=== PATIENT | female | born 1980 | race Two or more races ===

== ENCOUNTER 2023-11-22 11:00 | Outpatient (REF) | payer SELFPAY ==
[2023-11-22 11:52] LABS: MANUAL DIFF FLAG NO
[2023-11-22 12:08] LABS: Basophils Absolute Auto 0.1 X10*3/uL (0.0-0.2); Basophils Percent Auto 0.6 % (0-2); Eosinophils Absolute Auto 0.2 X10*3/uL (0.0-0.4); Eosinophils Percent Auto 1.9 % (0-4); Hematocrit 36.3 % (37.0-47.0); Hemoglobin 11.6 g/dl (12.0-16.0); Imm Gran Abs Auto 0.03 X10*3/uL (0.00-0.03); Imm Gran Pct Auto 0.4 % (0.0-0.4); Lymphocytes Absolute Auto 2.1 X10*3/uL (1.2-4.9); Mean Corpuscular Hemoglobin 22.6 pg (27.0-33.0); Mean Corpuscular Volume 70.6 fL (80.0-98.0); Mean Platelet Volume 10.3 fL (9.4-12.3); Monocytes Absolute Auto 0.4 X10*3/uL (0.1-1.2); Monocytes Percent Auto 4.7 % (2-11); Neutrophils Absolute Auto 5.6 x10*3/uL (2.0-8.3); Neutrophils Percent Auto 67.4 % (45-73); Platelet Count 315 X10*3/uL (160-400); Red Blood Count 5.14 X10*6/uL (4.20-5.50); White Blood Count 8.3 X10*3/uL (4.8-10.8)
[2023-11-22 12:44] LABS: Alanine Aminotransferase 9 U/L (0-31); Albumin Level 4.1 g/dL (3.5-5.0); Alkaline Phosphatase 97 U/L (39-117); Anion Gap 13 (12-20); Aspartate Amino Transferase 13 U/L (5-31); Bilirubin Direct 0.2 mg/dL (0.0-0.5); Bilirubin Total 0.6 mg/dL (0.0-1.0); Blood Urea Nitrogen 10 mg/dL (9-16); Calcium 9.4 mg/dL (8.4-10.2); Carbon Dioxide 24 mmol/L (22-29); Chloride 106 mmol/L (96-108); Cholesterol 183 mg/dL (<200); Estimated Glomerular Filt Rate > 60; Glucose Random 87 mg/dL (60-115); HDL Cholesterol 43 mg/dL (>40); Iron 70 mcg/dL (30-160); LDL Cholesterol Calculated 124 mg/dL (<100); Percent Iron Saturation 26 % (15-50); Potassium 3.5 mmol/L (3.3-5.1); Sodium 139 mmol/L (135-145); Total Iron Binding Capacity 265 mcg/dL (228-428); Triglycerides 80 mg/dL (<150); Unsaturated Iron Binding 195 ug/dL
[2023-11-22 12:52] LABS: Ferritin 39 ng/mL (10-250); TSH reflex Free T4 1.14 uIU/mL (0.32-4.0)
[2023-11-23 04:03] LABS: ~HepC Num1 0.19 S/CO (0.00-0.79); ~Hepatitis C Antibody Nonreactive (Nonreactive)
[2023-11-25 18:03] LABS: HIV RNA PCR Qn Copies Not Detected Copies/mL; HIV RNA PCR Qn Log Copies Not Detected Log cps/mL
== END 2023-11-22 11:01 | disposition home or self-care (01) ==
LOC: HO.HHCL 11:00
PROVIDERS: Visit Provider Internal Medicine
DX: Z00.00 Encounter for general adult medical examination without abnormal findings (principal); Z13.6 Encounter for screening for cardiovascular disorders; D64.9 Anemia, unspecified
CPT/HCPCS: 36415; 80048; 80061; 80076; 82728; 83540; 84443; 85025; 86803; 87536; 87900

== ENCOUNTER 2023-12-29 08:34 | Outpatient (REF) | payer OTHER, SELFPAY ==
--- NOTE | ~2023-12-29 | US_ITS ---
EXAMINATION: US ABDOMEN LIMITED CLINICAL INFORMATION: Upper quadrant pain, rule out gallbladder problems. COMPARISON: None available. TECHNIQUE: Real-time imaging of the right upper quadrant abdominal viscera. Limited visualization due to bowel gas. FINDINGS: PANCREAS: Limited visualization of pancreatic tail and head. Imaged portion of pancreatic body is unremarkable. LIVER: Increased hepatic parenchymal heterogeneity and echogenicity could be associated with hepatocellular disease/hepatic steatosis and substantially limits visualization. The hepatic contour is normal. The liver is normal in size. Correlation with liver function tests and clinical exam recommended to determine further management. GALLBLADDER: No gallstones. No gallbladder wall thickening. COMMON BILE DUCT: Normal in caliber measuring 0.24 cm in diameter. RIGHT KIDNEY: No hydronephrosis. No renal calculi. Limited visualization. The kidney measures 11.5 cm in maximum dimension. FREE FLUID: None. US/US abdomen limited IMPRESSION: Increased hepatic parenchymal heterogeneity and echogenicity could be associated with hepatocellular disease/hepatic steatosis and substantially limits visualization. Correlation with liver function tests and clinical exam recommended to determine further management.
== END 2023-12-29 08:35 | disposition home or self-care (01) ==
LOC: HO.HMGCX 08:34
PROVIDERS: PCP Internal Medicine; Visit Provider Internal Medicine
DX: R10.11 Right upper quadrant pain (principal)
CPT/HCPCS: 76705

== ENCOUNTER 2024-04-17 15:43 | Outpatient (REF) | payer OTHER, SELFPAY ==
--- NOTE | ~2024-04-17 | MM_ITS ---
EXAMINATION: MM SCREENING DIGITAL BREAST TOMOSYNTHESIS, BILATERAL CLINICAL INFORMATION: Screening. Asymptomatic. COMPARISON: Mammography: Comparison is made with available priors TECHNIQUE: Digital breast mammography with tomosynthesis is performed in both the craniocaudal and mediolateral oblique views along with computer-aided detection (CAD). FINDINGS: There are scattered areas of fibroglandular density (ACR BI-RADS breast composition Category b). There are no significant masses, abnormal calcifications, or other abnormalities. MM/MM tomosynthesis screening BI IMPRESSION: No mammographic evidence of malignancy. ASSESSMENT: BI-RADS BI-RADS 1 - Negative RECOMMENDATION: Routine annual mammography screening. 1 year F/U This examination should not preclude the clinical evaluation of a suspicious palpable abnormality. This patient's information was entered into a reminder system with a target due date for their next mammogram. Electronically signed by: Joanna Bailey DO 04/27/2024 09:04 AM EDT
== END 2024-04-17 15:44 | disposition home or self-care (01) ==
LOC: HO.MAMMO 15:43
PROVIDERS: PCP Internal Medicine; Visit Provider Internal Medicine
DX: Z12.31 Encounter for screening mammogram for malignant neoplasm of breast (principal)
CPT/HCPCS: 77063; 77067

== ENCOUNTER → 2024-04-17 16:15 | Outpatient (BNV) | payer OTHER, SELFPAY | PROVIDERS: PCP Internal Medicine; Visit Provider Internal Medicine | DX: Z12.31 Encounter for screening mammogram for malignant neoplasm of breast (principal) | CPT/HCPCS: 77063; 77067 ==

== ENCOUNTER 2024-05-25 16:29 | Outpatient (REF) | payer OTHER, SELFPAY ==
[2024-05-26 08:58] LABS: Adenovirus PCR Not Detected (Not Detect.); Bordetella parapertussis PCR Not Detected (Not Detect.); Chlamydia pneumoniae PCR Not Detected (Not Detect.); Coronavirus 229E PCR Not Detected (Not Detect.); Coronavirus HKU1 PCR Not Detected (Not Detect.); Coronavirus NL63 PCR Not Detected (Not Detect.); Coronavirus OC43 PCR Not Detected (Not Detect.); Human metapneumovirus PCR Not Detected (Not Detect.); Influenza A PCR Not Detected (Not Detect.); Influenza B PCR Not Detected (Not Detect.); Mycoplasma pneumoniae PCR Not Detected (Not Detect.); Parainfluenza 1 PCR Not Detected (Not Detect.); Parainfluenza 2 PCR Not Detected (Not Detect.); Parainfluenza 3 PCR Not Detected (Not Detect.); Parainfluenza 4 PCR Not Detected (Not Detect.); RSV PCR Not Detected (Not Detect.); Rhino/Enterovirus PCR Not Detected (Not Detect.)
[2024-05-26 09:12] LABS: SARS-CoV-2 PCR Not Detected (Not Detect.)
[2024-05-28 12:57] LABS: Bordetella pertussis PCR Detected (Not Detect.)
== END 2024-05-25 16:30 | disposition home or self-care (01) ==
LOC: HO.LNP 16:29
PROVIDERS: Visit Provider Student in an Organized Health Care Education/Training Program
DX: R05.8 Other specified cough (principal)
CPT/HCPCS: 87633

== ENCOUNTER 2024-10-19 09:16 | Outpatient (REF) | payer OTHER, SELFPAY ==
--- OUTSIDE RECORDS SUMMARY | 2024-10-19 10:00 | XMS_ITS | Encounter Summary ---
Author Organization [employer] Address [address] [place] [address] Care Team Providers Care Wildfire Prevention Specialist Name Role Phone Ivy Blanton MD Primary Care Provide r Encounter Details Date Type Department Care Team ([facility] st Contact Info) Description 05/03/2024 Orders Only [facility] [address] [place] [address] Provider, MD Inez Social History Tobacco Use Types Packs/Day Years Used Date Smoking Tobacco: Never Passive Smoke Exposure: Never Smokeless Tobacco: Never Alcohol Use Standard Drinks/Week Comments Never 0 (1 standard drink = 0.6 oz pur e alcohol) Alcohol Answer Date Recorded Frequency of Alcohol Consumption Not on file 11/22/2023 Average Number of Drinks Not on file 024 Frequency of Binge Drinking Not on file 01/2024 Score 0 11/22/2023 Depression Answer Date Recorded Patient Health Questionnaire-9 Score 0 11/22/2023 Patient Health Questionnaire-9 Score 0 11/22/2023 Last PHQ-9: Questionnaire Data Not on file 0 11/22/2023 Housing Stability Answer Date Recorded What is your housing situation today? I have luther poole 11/15/[address] you li ve. Do you have problems with any of the following? None of the above 11/15/2023 Food Insecurity Answer Date Recorded Within the past 12 months, y ou worried that your food would run out before you got money to buy more: Never True 11/15/2023 Within the past 12 months,th e food you bought just didn't last and you didn't have enough money to get more: Never True Transportation Answer Date Recorded In the past 12 months, has l ack of transportation kept you from medical appts, meetings, work or from getting things needed for daily living? No 11/15/2023 Utilities Answer Date Recorded In the past 12 months, has t he electric, gas, oil or water company threatened to shut off services in your home? No 11/15/2023 Depression Answer Date Recorded Patient Health Questionnaire-2 Score 0 11/22/2023 Comments Unknown Sex and Gender Information Value Date Recorded Sex Assigned at Female 05/17/2022 10:25 AM EDT Legal Sex Female 10:25 AM EDT Gender Identity Female 05/17/2022 10:25 AM EDT Sexual Orientation Choose not to disclose 2021 10:25 AM EDT documented as of this encounter Plan of Treatment Not on file documented as of this encounter Procedures Procedure Name Priority Date/Time Associated Diagnosis Comments HM PAP/HPV Routine 02/03/2021 2:29 PM EDT documented in this encounter Results * HM PAP/HPV (02/03/2021 2:29 PM EDT) us Historical Provider HEALTH MAINTENANCE Final Result documented in this encounter Visit Diagnoses Not on filedocumented in this encounter Additional Health Concerns Assessment Noted Time PHQ-9 Depression Total Score: 0 11/22/19 10:14 AM EDT documented as of this encounter Care Teams Wildfire Prevention Specialist Relationship Specialty Start Date End Date Ivy Blanton MD [address] [place] [id number] PCP - General Internal Medicine 11/22/23 documented as of this encounter
--- OUTSIDE RECORDS SUMMARY | 2024-10-19 10:00 | XMS_ITS | Clinical Summary ---
Author Organization [facility] it Address [address] [place] [address] Care Team Providers Care Director Child Development Center Name Role Phone Ivy Blanton MD Primary Care Provide r Surgical History Surgery Date Site/Laterality Comments TONSILLECTOMY PROCEDURE: HISTORICAL TONSILLECTOMY TUBAL LIGATION PROCEDURE: HISTORICAL TUBAL LIGATION UPPER GASTROINTESTINAL ENDOSCOPY 2012 PROCEDURE: [place] UPPER GI ENDOSCOPY PERFORMED; COMMENT: [facility] COLONOSCOPY 02/01/2017 PROCEDURE: HISTORICAL COLONOSCOPY; COMMENT: Dr. Montes -apparently normal ESOPHAGOGASTRODUODENOSCOPY 02/01/2017 PROCEDURE: MI EGD TRANSORAL BIOPSY SINGLE/MULTIPLE; COMMENT: Dr. Montes -gastritis. Biopsy consistent with chronic active gastritis with H. pylori infection. OTHER SURGICAL HISTORY 08/22/2017 PROCEDURE: CONTRAST X-RAYS, GALLBLADDER; COMMENT: HIDA scan is normal OTHER SURGICAL HISTORY 2009 N/A PROCEDURE: CERVICAL LEEP CONE BIOPSY [facility]Y EX ESOPHAGOGASTRODUODENOSCOPY 11/04/2021 PROCEDURE: MI EGD TRANSORAL BIOPSY SINGLE/MULTIPLE; COMMENT: normal, biopsy pending Medical History Medical History Date Comments Anemia 06/29/2013 DX:Anemia Anxiety 06/29/2013 DX:Anxiety; COMM ENT: [facility] - has counseling q2w; sees psych who prescribes meds as well. Asthma 06/29/2013 DX:Asthma Chronic constipation 05/10/2017 DX:Chronic constipation Esophageal reflux 12/11/2013 DX:Esophageal reflux History of Helicobacter pylo ri infection 01/26/2018 DX:History of Helicobacter p ylori infection; COMMENT: EGD 2012 ([facility]) Sludge in gallbladder 08/11/2017 DX:Sludge in gallbladder Dysplasia of cervix, high grade JAIR 2 2008 DX:Dysplasia of cervix, high grade JAIR 2 Epigastric pain DX:Epigastric pa in Depressive disorder DX:Depressiv e disorder Family History Medical History Relation Name Comments No Known Problems Brother Colon cancer Maternal Grandmother in 80s, her sister had breast cancer Hypertension Mother No Known Problems Sister Asthma Son x3 Blindness Neg Hx Cataracts Neg Hx Glaucoma Neg Hx Macular degeneration Neg Hx Strabismus Neg Hx Relation Name Status Comments Brother Alive Father unknown Maternal Grandmother Mother Alive Sister Alive Son Social History Tobacco Use Types Packs/Day Years Used Date Smoking Tobacco: Former Smokeless Tobacco: Former Alcohol Use Standard Drinks/Week Comments No 0 (1 standard drink = 0.6 oz pur e alcohol) Comments Unknown Sex and Gender Information Value Date Recorded Sex Assigned at Not on file Legal Sex Female 5:45 AM EST Gender Identity Not on file Sexual Orientation Not on file Obstetrics History Last Filed Vital Signs Vital Sign Reading Time Taken Comments Blood Pressure 116/86 04/19/2024 8:36 AM EDT Pulse 73 04/19/2024 8:36 AM EDT Temperature - - Respiratory Rate - - Oxygen Saturation - - Inhaled Oxygen Concentration - - Weight 56.7 kg (125 lb) 04/19/2024 8:36 AM EDT Height 149.9 cm (4' 11 ) 04/19/2024 8:36 AM EDT Body Mass Index 25.25 04/19/2024 8:36 AM EDT Plan of Treatment Health Maintenance Due Date Last Done Comments Breast Cancer Screening 1980 Hepatitis B Vaccines (1 of 3 - 19+ 3-dose series) 1997 Pneumococcal Vaccine: Pediat rics (0 to 5 Years) and At-Risk Patients (6 to 64 Years) (1 of 2 - PCV) 1997 Colorectal Cancer Screening: Colonoscopy 06/20/2022 Depression Screening 06/20/2022 HIV Screening 06/20/2022 Hepatitis C Screening 06/20/2022 Social Influencers of Health Screening 06/20/2022 DTaP,Tdap,and Td Vaccines (2 - Td or Tdap) 09/28/2023 09/27/2013 COVID-19 Vaccine ( - 2023-2 5 season) 2024 Influenza Vaccine (#1) 2024 Cervical Cancer Screening: P ap Smear 04/19/2027 04/19/2024 HIB Vaccines Aged Out No longer eligi ble based on patient's age to complete this topic HPV Vaccines Aged Out No longer eligi ble based on patient's age to complete this topic Hepatitis A Vaccines Aged Out No long er eligible based on patient's age to complete this topic IPV Vaccines Aged Out No longer eligi ble based on patient's age to complete this topic MMR Vaccines Aged Out No longer eligi ble based on patient's age to complete this topic Meningococcal ACWY Vaccine Aged Out N o longer eligible based on patient's age to complete this topic Meningococcal B Vacine Aged Out No lo nger eligible based on patient's age to complete this topic RSV Immunization Patients Un michaela 20 months Aged Out No longer eligible b ased on patient's age to complete this topic Varicella Vaccines Aged Out No longer eligible based on patient's age to complete this topic Procedures Procedure Name Priority Date/Time Associated Diagnosis Comments PAP SMEAR Routine 04/19/2024 from Last 3 Months or Most Recently Relevant to Health Maintenance Results * Pap smear (04/19/2024) 04/19/2024 Narrative HISTORICAL TESTING LAB RESULTING AGENCY - 04/24/2024 1:15 PM EDT [id number] THINPREP PAP, IMAGED: NEGATIVE FOR SQUAMOUS INTRAEPITHELIAL LESION AND MALIGNANCY ION PARIKH(ASCP) (CASE ELECTRONICALLY SIGNED 04 24 2024) RESULT OF APTIMA HIGH RISK HPV ASSAY: HIGH RISK HPV: ??NEGATIVE (SEROTYPES 16,18,31,33,35,39,45,51,52,56,58,59,66,68) COMPLETED ON 2024-04-20 ADEQUACY: SATISFACTORY ENDOCERVICAL/TRANSFORMATION ZONE COMPONENT PRESENT. SOURCE: THINPREP PAP HPV ANY DX: ??REFLEX 16 AND 18, CERVICAL, IMAGED CLINICAL INFORMATION: HPV ANY DIAGNOSIS. HORMONES, PAP HX NEGATIVE AT [facility] 2020, [[id number] ENCOUNTER FOR GYNECOLOGICAL EXAMINATION (GENERAL) (ROUTINE) WITHOUT ABNORMAL FINDINGS] us Phylicia Moore CN LAB CYTOLOGY ORDERABLES Final Result HISTORICAL TESTING LAB RESULTING AGENCY from Last 3 Months or Most Recently Relevant to Health Maintenance Care Teams Director Child Development Center Relationship Specialty Start Date End Date Ivy Blanton MD [address] [place] [phone] PCP - General 01/13/24
--- OUTSIDE RECORDS SUMMARY | 2024-10-19 10:00 | XMS_ITS | Clinical Summary ---
Author Organization [employer] Address [address] [place] [address] [address] [place] [address] Care Team Providers Care Orthopedic Podiatrist Name Role Phone Ivy Blanton MD Primary Care Provide r Allergies No known active allergies Medications * This document contains information received from the source organization and may not represent a complete record from that organization. FLUoxetine (PROzac) 20 MG capsule TOME 1 C PSULA POR V A ORAL TODOS LOS D EN LA MA MURALI 024 Active cholecalciferol VITAMIN D (Vitamin D-3) 50 MCG (2000 UT) capsule TOME 1 C PSULA POR V A ORAL TODOS LOS D Active albuterol 108 (90 Base) MCG/ACT inhalerIndicati ons:Mild intermittent asthma, unspecified whether complicated Inhale 2 puffs every 6 (six) hours if needed for wheezing. 18 g 2 025 2025 Active albuterol (2.5 MG/3ML) 0.083% nebulizer solutionIndicat ions:Mild intermittent asthma, unspecified whether complicated Take 3 mL (2.5 mg) by nebulization every 4 (four) hours if needed for wheezing. 75 mL 3 025 2025 Active fluticasone furoate (Arnuity Ellipta) 100 MCG/ACT inhalerIndicati ons:Mild intermittent asthma, unspecified whether complicated Inhale 1 puff Once per day. Rinse mouth with water after use to reduce aftertaste and incidence of candidiasis. Do not swallow. 1 each 025 2025 Active LORazepam (Ativan) 0.5 MG tabletIndicatio ns:Anxiety Use if needed for traveling 4 tablet 025 Active albuterol 108 (90 Base) MCG/ACT inhalerIndicati ons:Mild intermittent asthma, unspecified whether complicated Inhale 2 puffs every 6 (six) hours if needed for wheezing. 18 g 2 024 2024 Discontinued(R eorder (will not trigger notification to Pharmacy)) albuterol (2.5 MG/3ML) 0.083% nebulizer solutionIndicat ions:Mild intermittent asthma, unspecified whether complicated Take 3 mL (2.5 mg) by nebulization every 4 (four) hours if needed for wheezing. 75 mL 3 024 2024 Discontinued(R eorder (will not trigger notification to Pharmacy)) LORazepam (Ativan) 0.5 MG tabletIndicatio ns:Anxiety Use if needed for traveling 4 tablet 024 2024 Discontinued(R eorder (will not trigger notification to Pharmacy)) Active Problems Problem Noted Date Diagnosed Date Chronic fatigue 10/04/2024 Assessment & Plan (10/04/2024 2:55 PM EDT): Labs ordered today patient will be contacted with results Cough in adult 05/27/2024 Assessment & Plan (05/27/2024 8:25 AM EST): Pt with dry cough for more than a week , had recently CXR at hospital reported as neg and neg COVID 19 infections Given increase in cases of pertussis and mycoplasma and features of cough this is in the differential Normal VS and ENT and lung exam Pt already completed empiric azithromycin x 5 days px in ED which will tx for mycoplasma and pertussis -Resp viral panel obtained today in office -will inform pt w results -explained pt that if + for mycoplasma and pertussis cough can linger for several weeks -already completed 5 days w azithromycin -dextromethorphan px today -alarm signs and symptoms -BRYNN prn use-has at home -mask use advised and hand hygiene Colon cancer screening 04/05/2024 Encounter for screening mamm ogram for malignant neoplasm of breast 04/05/2024 RUQ pain 12/22/2023 Assessment & Plan (12/22/2023 12:21 PM EDT): GI referral will be printed and mail to patient US ordered patient will be contacted with results Helicobacter pylori gastritis 11/22/2023 Other constipation 11/22/2023 Anemia 11/22/2023 Muscle spasm 11/22/2023 Assessment & Plan (11/22/2023 1:18 PM EDT): Apply heat on affected area Gentle stretching Flexeril (I advise not drive while taking this medication) Acetaminophen PRN Health care maintenance 11/22/2023 Overweight (BMI 25.0-29.9) 11/22/2023 Fear of flying 11/22/2023 Assessment & Plan (11/22/2023 1:19 PM EDT): Lorazepam supply only 4 tablet take one 1-2 hours before her flight Anxiety 06/25/2013 Assessment & Plan (10/04/2024 2:53 PM EDT): Continue to follow with therapist and psychiatrist Assessment & Plan (04/05/2024 11:15 AM EDT): Stable continue with same interventions Assessment & Plan (12/22/2023 12:21 PM EDT): Continue to follow with specialist Arthritis 06/25/2013 Asthma 06/25/2013 Assessment & Plan (10/04/2024 2:53 PM EDT): Patient educated to avoid triggers I will star her on ellipta daily C/w albuterol PRN Assessment & Plan (11/22/2023 1:17 PM EDT): Patient educated to avoid asthma triggers Albuterol refilled today Encounters Date Type Department Care Team Description 10/04/2024 11:00 AM EDT Office Visit [facility] [address] [place] [phone] Ivy Blanton MD Colon cancer screening (Primary Dx); Mild intermittent asthma, unspecified whether complicated; Chronic fatigue; Anxiety 10/04/2024 Travel 09/26/2024 Patient Outreach [facility] [address] [place] [address] Ivy Blanton MD Pre-visit Planning (SDOH screening negative and tobacco screening negative) from Last 3 Months Immunizations Name Administration Dates Next Due Influenza, IIV3, injectable 06/05/2008, 6 Pneumococcal Polysaccharide PPSV23 06/01/2006 Social History Tobacco Use Types Packs/Day Years Used Date Smoking Tobacco: Never Passive Smoke Exposure: Never Smokeless Tobacco: Never Tobacco Cessation:Counseling Given: Not Answered Alcohol Use Standard Drinks/Week Comments Never 0 [...] your housing situation today? I have luther virgilio 11/15/[address] you li [...] Recorded Patient Health Questionnaire-2 Score 0 11/22/2023 Internet Access Answer Date Recorded Internet Access Q1 Yes 09/26/2024 Internet Access Q2 Not on file 09/26/2024 Comments Unknown Sex and Gender Information Value Date Recorded Sex Assigned at Female 05/17/2022 10:25 AM EDT Legal Sex Female 10:25 AM EDT Gender Identity Female 05/17/2022 10:25 AM EDT Sexual Orientation Choose not to disclose 2021 10:25 AM EDT Last Filed Vital Signs Vital Sign Reading Time Taken Comments Blood Pressure 127/80 10/04/2024 11:02 AM EDT Pulse 77 10/04/2024 11:02 AM EDT Temperature 35.6 ??C (96.1 ??F) 10/04/2024 11:02 AM E DT Respiratory Rate 20 10/04/2024 11:02 AM EDT Oxygen Saturation 99% 05/25/2024 1:02 PM EST Inhaled Oxygen Concentration - - Weight 58.7 kg (129 lb 6.4 oz) 10/04/2024 11:02 AM EDT Height 149.9 cm (4' 11 ) 10/04/2024 11:02 AM EDT Body Mass Index 26.14 10/04/2024 11:02 AM EDT Plan of Treatment Health Maintenance Due Date Last Done Comments CT Colonography 1978 Colonoscopy 1978 Colorectal Cancer Screening 1978 FIT DNA/Cologuard 1978 FIT 1978 FOBT 1978 HIV Screening 1978 Sigmoidoscopy 1978 Family Planning (PISQ) 1993 DTaP/Tdap/Td Vaccines (1 - Tdap) 1997 Hepatitis B Vaccines (1 of 3 - 19+ 3-dose series) 1997 Pneumococcal Vaccine: Pediatrics (0 to 5 Years) and At-Risk Patients (6 to 49) Years) (2 of 2 - PCV) 06/01/2007 06/01/2006 Dental Prophylaxis 06/22/2015 12/20/2014 Dental Oral Exam 03/11/2020 09/10/2019, 02/23/2017, 10/04/2014 Dental X-Ray: Bitewings 09/11/2020 09/10/19 20, 02/23/2017, 10/04/2014 Dental X-Ray: Full Mouth 09/11/2022 020, 10/04/2014 COVID-19 Vaccine (3 - 2023-2 5 season) 2024 01/07/2021, 12/17/2020 Influenza Vaccine (#1) 2024 8, 06/01/2006 Alcohol/Substance Use Screening 11/21/2024 11/22/2023 Depression Screening 11/21/2024 11/22/2023, 11/22/2023 SDOH Screening 09/26/2025 09/26/2024 Tobacco Screening 10/04/2025 10/04/2024 Cervical Cancer Screening 02/03/2026 HPV/Cotest 02/03/2026 Pap Smear 02/03/2026 02/03/2021 Mammogram 04/17/2026 04/17/2024 Zoster Vaccines (1 of 2) 2028 RSV Patients and Patients Aged 60 years or older (1 - 1-dose 75+ series) 2053 Hepatitis C Screening Completed 11/22/2023 HIB Vaccines Aged Out No longer eligi [...] patient's age to complete this topic Meningococcal Vaccine Aged Out No michel juan j eligible based on patient's age to complete this topic RSV under 20 months Aged Out No longe r eligible based on patient's age to complete this topic Rotavirus Vaccines Aged Out No longer eligible based on patient's age to complete this topic Procedures Procedure Name Priority Date/Time Associated Diagnosis Comments BI MAMMOGRAM SCREENING TOMOSYNTHESIS BILATERAL Routine 04/17/2024 3:50 PM EDT Encounter for screening mammogram for malignant neoplasm of breast HEPATITIS C AB W/REFL TO HCV RNA, QN, PCR Routine 11/22/2023 11:03 AM EDT Health care maintenance HM PAP/HPV Routine 02/03/2021 2:29 PM EDT INTRAORAL - COMPLETE SERIES OF RADIOGRAPHIC IMAGES Routine 09/10/2019 12:00 AM EST PERIODIC ORAL EVALUATION - ESTABLISHED PATIENT Routine 09/10/2019 12:00 AM EST PROPHYLAXIS - ADULT Routine 12/20/2014 1 2:00 AM EDT from Last 3 Months or Most Recently Relevant to Health Maintenance Results * BI Mammogram Screening Tomosynthesis Bilateral (04/17/2024 3:50 PM EDT) Anatomical Region Laterality Modality Breast Bilateral Mammography 04/17/2024 3:50 PM EDT Narrative 04/27/2024 9:07 AM EDT ? [facility] ? [address] ?[place], [place] [address] ? Mammography Report ? Signed ? Patient: Abimbola James ?MR#: [id number] ?? 4 ? : 1980 ?Acct:[id number] ? Age/Sex: 43 / F ?ADM Date: 04/17/24 ? Loc: HO.MAMMO ? Attending Dr: Ivy Willett MD ? Ordering Physician: Ivy Blanton MD ?Results: ?? 1Negative ? Date of Service: 04/17/24 ?Follow Up: 1 Year From Orig ?? inal Mammogram ? Procedure(s): MM tomosynthesis screening BI ?? Accession Number(s): [id number] ? cc: Ivy Blanton MD ? EXAMINATION: ?? MM SCREENING DIGITAL BREAST TOMOSYNTHESIS, BILATERAL ? CLINICAL INFORMATION: ? Screening. Asymptomatic. ? COMPARISON: ?? Mammography: Comparison is made with available priors ? TECHNIQUE: ?? Digital breast mammography with tomosynthesis is performed in both the ?? craniocaudal and mediolateral oblique views along with computer-aided ?? detection (CAD). ? FINDINGS: ?? There are scattered areas of fibroglandular density (ACR BI-RADS breast ?? composition Category b). ? There are no significant masses, abnormal calcifications, or other ?? abnormalities. ? MM/MM tomosynthesis screening BI ?? IMPRESSION: ?? No mammographic evidence of malignancy. ? ASSESSMENT: ? BI-RADS BI-RADS 1 - Negative ? RECOMMENDATION: ?? Routine annual mammography screening. ? 1 year F/U ? This examination should not preclude the clinical evaluation of a ?? suspicious palpable abnormality. ? This patient's information was entered into a reminder system with a ?? target due date for their next mammogram. ? Electronically signed by: ??Joanna Bailey DO ??04/27/2024 09:04 AM EDT ? Dictated By: ?Joanna Bailey DO ? Signed By: ?<Electronically signed by Joanna Bailey, DO in OV> ? 04/27/24 0904 ? DD/ 1550 ? TD/TT: 04/17/24 1611 ? Internal Controls Consultant: ? Procedure Note [facility], Image - 04/27/2024 [facility] [address] [place] [address] Mammography Report Signed Patient: Abimbola JamesMR#: [id number] 4 : 1980Acct:[id number] Age/Sex: 43 / FADM Date: 04/17/24 Loc: [facility] Attending Dr: Ivy Willett MD Ordering Physician: Ivy Blanton MDResults: 1Negative Date of Service: 04/17/24Follow Up: 1 Year From Orig inal Mammogram Procedure(s): MM tomosynthesis screening BI Accession Number(s): [id number] cc: Ivy Blanton MD EXAMINATION: MM SCREENING DIGITAL BREAST TOMOSYNTHESIS, BILATERAL CLINICAL INFORMATION: Screening. Asymptomatic. COMPARISON: Mammography: Comparison is made with available priors TECHNIQUE: Digital breast mammography with tomosynthesis is performed in both the craniocaudal and mediolateral oblique views along with computer-aided detection (CAD). FINDINGS: There are scattered areas of fibroglandular density (ACR BI-RADS breast composition Category b). There are no significant masses, abnormal calcifications, or other abnormalities. MM/MM tomosynthesis screening BI IMPRESSION: No mammographic evidence of malignancy. ASSESSMENT: BI-RADS BI-RADS 1 - Negative RECOMMENDATION: Routine annual mammography screening. 1 year F/U This examination should not preclude the clinical evaluation of a suspicious palpable abnormality. This patient's information was entered into a reminder system with a target due date for their next mammogram. Electronically signed by: Joanna Bailey DO 04/27/2024 09:04 AM EDT RP Dictated By: Joanna Bailey DO Signed By: <Electronically signed by Joanna Bailey DO in OV> 04/27/24 0904 DD/ 1550 TD/TT: 04/17/24 1611 Internal Controls Consultant: us Ivy Willett MD IMG BI PROCEDURES Raj antonio Result - Final * Hepatitis C Antibody with Reflex to HCV, RNA, Quantitative, Real-Time PCR (11/22/2023 11:03 AM EDT) Hepatitis C Antibody Nonreactive Nonreactive [facility] Comment:Antibodies to HCV no t detected; does not exclude early acuteHCV infection. Blood Venous blood specimen / Unknown 11/22/2023 11:03 AM EDT 11/22/2023 11:50 AM EDT us Ivy Willett MD LAB BLOOD ORDERABLES Final Result [facility] [address] [place] [address] [phone] * HM PAP/HPV (02/03/2021 2:29 PM EDT) us Historical Provider HEALTH MAINTENANCE Final Result from Last 3 Months or Most Recently Relevant to Health Maintenance Insurance [facility] Care Teams Orthopedic Podiatrist Relationship Specialty Start Date End Date Ivy Blanton MD [address] [place] [phone] PCP - General Internal Medicine 11/22/23
--- OUTSIDE RECORDS SUMMARY | 2024-10-19 10:00 | XMS_ITS | Clinical Summary ---
Author Organization [facility] Address [address] [place] [address] Care Team Providers Care Marketing Support Manager Name Role Phone Unavailable Primary Care Provider Unavailabl e Source Comments PLEASE NOTE, if this patient is a minor, it may be UNLAWFUL to discuss sensitive information that is contained in these records (such as FAMILY PLANNING, MENTAL HEALTH or SUBSTANCE ABUSE) with the minor patient's parent or other person without the patient's specific authorization.[facility] Allergies No known active allergies Medications clonazePAM (KLONOPIN) 0.5 mg tablet 5 5 Active zolpidem (AMBIEN) 5 mg tablet Take 5 mg by mouth nightly at bedtime. 5 5 Active ibuprofen (ADVIL,MOTRIN) 400 mg tablet 6 Active montelukast (SINGULAIR) 10 mg tabletIndication s:Mild intermittent asthma without complication ([facility]) Take 1 Tab by mouth nightly at bedtime. 30 Tab 3 6 Active polyethylene glycol (GLYCOLAX, MIRALAX) 17 gram/dose powderIndication s:Chronic constipation Take 17 g by mouth once daily. Dissolve in a glass (8 oz) of water. 289 g 2 6 Active naproxen (NAPROSYN) 500 mg tabletIndication s:Acute right-sided low back pain with right-sided sciatica Take 1 Tab by mouth 2 (two) times daily with a meal. 60 Tab 2 6 Active cyclobenzaprine (FLEXERIL) 10 mg tabletIndication s:Acute right-sided low back pain with right-sided sciatica Take 1 Tab by mouth 2 (two) times daily as needed for muscle spasms. 40 Tab 0 10/07/201 6 Active naproxen (NAPROSYN) 500 mg tabletIndication s:Acute right-sided low back pain with sciatica, sciatica laterality unspecified Take 1 Tab by mouth 2 (two) times daily with a meal 60 Tab 0 7 Active cyclobenzaprine (FLEXERIL) 5 mg tabletIndication s:Acute right-sided low back pain with sciatica, sciatica laterality unspecified Take 1 Tab by mouth 2 (two) times daily as needed for muscle spasms 30 Tab 0 7 Active methylPREDNIsolo ne (MEDROL DOSPACK) 4 mg tablet packIndications: Acute right-sided low back pain with sciatica, sciatica laterality unspecified Follow package directions. 1 Packet 0 7 Active capsaicin (ZOSTRIX) 0.075 % creamIndications :Acute right-sided low back pain with sciatica, sciatica laterality unspecified Apply topically 3 (three) times daily 60 g 0 7 Active rifabutin (MYCOBUTIN) 150 mg capsule 7 Active ferrous sulfate 325 mg (65 mg iron) tablet Take 1 Tab by mouth once daily with breakfast 30 Tab 5 8 Active DAILY-ALHAJI tabletIndication s:Dysuria,Chroni c right-sided low back pain with right-sided sciatica TAKE 1 TABLET BY MOUTH EVERY DAY 30 Tab 1 8 Active albuterol sulfate 90 mcg/actuation inhalerIndicatio ns:Mild intermittent asthma without complication ([facility]) INHALE 2 PUFFS INTO THE LUNGS EVERY 6 HOURS NEEDED FOR SHORTNESS OF BREATH OR WHEEZING 8.5 Inhaler 9 Active VITAMIN D3 2,000 unit capsule 9 Active FLUoxetine (PROZAC) 40 mg capsule 9 Active ferrous sulfate 325 mg (65 mg iron) EC tablet Take 1 Tab by mouth once daily with breakfast Swallow whole. Do not crush or chew. 30 Tab 5 9 Active docusate sodium (COLACE) 100 mg capsule Take 1 Cap by mouth 3 (three) times daily as needed for constipation 60 Cap 2 9 Active nebulizer accessoriesIndic ations:Mild intermittent asthma without complication ([facility]) Use as directed 1 Device 9 Active nebulizer and compressorIndica tions:Mild intermittent asthma without complication ([facility]) Use as directed 1 Each 9 Active diphenhydramine- zinc acetate (BENADRYL) 1-0.1 % creamIndications :Urticaria Apply topically 3 (three) times daily as needed for itching 28.3 g 2 9 Active hydrOXYzine HCl (ATARAX) 50 mg tabletIndication s:Urticaria Take 1 Tab by mouth 3 (three) times daily as needed for anxiety or itching 30 Tab 3 9 Active omeprazole (PRILOSEC) [address] capsuleIndicatio ns:Helicobacter pylori gastritis TAKE 1 CAPSULE BY MOUTH 2 (TWO) TIMES DAILY DO NOT CRUSH OR CHEW. 60 Cap 1 9 Active Active Problems Problem Noted Date Diagnosed Date Gallbladder sludge 06/22/2017 Overview (06/22/2017): US Liver 06/17/17 echogenic layering sludge in gallbladder w/o evidence of acute cholecystitis. Sacroiliac dysfunction 02/14/2017 Overview (02/14/2017): Sees PM at on 12/20/16: going to receive injections. Vitamin D deficiency 05/21/2015 Depression with anxiety 05/13/2015 Overview (05/13/2015): She is following with at [address] On celexa, Klonopin, Ambien Insomnia 05/13/2015 Anemia 05/13/2015 Overview (06/04/2015): Since childhood. On Iron supplements. H/H normal but has low MCV in 04/2015 Gastritis 05/13/2015 Overview (02/08/2017): EGD colonoscopy done 02/01/17: erythema in the stomach probably from non erosive gastritis H/o H pylori s/p Rx. [place] ( [place] Constipation 05/13/2015 Mild intermittent asthma without complication ([facility]) 05/13/2015 Overview (05/13/2015): Symptoms depend on weather changes. Only on Albuterol. Had PFTs in [place] ~2013. Dizziness 05/13/2015 Overview (05/13/2015): Says that she was treated for vertigo in the past H/O abnormal cervical Papanicolaou smear 015 Overview (05/13/2015): ~2009 as per pt. S/p ? Colposcopy / Bx. Had normal PAP subsequently- last PAP 07/2014. Following with Global Sourcing Manager [place] [facility] [facility] Leukocytosis 05/13/2015 Overview (05/13/2015): Wbc=11.5(05/13/15) ? cause Immunizations Immunization Administration Dates Next Due TDAP 01/02/2019(Deferred: Patient Ref used) Family History Medical History Relation Name Comments Heart Problems Maternal Aunt Hypertension Maternal Aunt Cancer Maternal Grandmother Heart Problems Mother Hypertension Mother Thyroid Disease Mother Relation Name Status Comments Maternal Aunt Maternal Grandmother Mother Social History Tobacco Use Types Packs/Day Years Used Date Smoking Tobacco: Former Smokeless Tobacco: Never Alcohol Use Standard Drinks/Week Comments No 0 (1 standard drink = 0.6 oz pur e alcohol) Social Connections Answer Date Recorded Connectedness 0 03/24/2024 Financial Resource Strain Answer Date R ecorded Financial Resource Strain 0 2018 Stress Answer Date Recorded Stress 0 03/10/2019 Physical Activity Answer Date Recorded Physical Activity 0 03/10/2019 Food Insecurity Answer Date Recorded Food 0 04/12/2024 Transportation Needs Answer Date Record ed Transportation 0 03/10/2019 Housing Stability Answer Date Recorded Housing 0 03/10/2019 Safety and Environment Answer Date Vance rded Safety 0 01/02/2019 Utilities Answer Date Recorded Utilities 0 03/10/2019 Employment Answer Date Recorded Employment 0 03/10/2019 Comments No Sex and Gender Information Value Date Recorded Sex Assigned at Female 06/27/2017 6:13 AM PST Legal Sex Female 4:16 PM PDT Gender Identity Female 06/27/2017 6:13 AM PST Sexual Orientation Straight 06/27/2017 6: 13 AM PST Last Filed Vital Signs Vital Sign Reading Time Taken Comments Blood Pressure 112/70 02/20/2019 2:43 PM EDT Pulse 74 02/20/2019 2:43 PM EDT Temperature 36.9 ??C (98.5 ??F) 02/08/2019 9:17 AM ED T Respiratory Rate 16 02/08/2019 9:17 AM EDT Oxygen Saturation 98% 01/06/2018 8:49 AM EDT Inhaled Oxygen Concentration - - Weight 64.4 kg (142 lb) 02/20/2019 2:43 PM EDT Height 152.4 cm (5') 02/08/2019 9:17 AM EDT Body Mass Index 27.73 02/08/2019 9:17 AM EDT Plan of Treatment Not on file Insurance [facility]
--- OUTSIDE RECORDS SUMMARY | 2024-10-19 10:00 | XMS_ITS | Encounter Summary ---
Author Organization [employer] Address [address] [facility] [address] [facility] [address] [place] [address] Care Team Providers Care Stitching Machine Setter Name Role Phone Ivy Blanton MD Primary Care Provide r Reason for Visit * Reason Onset Date Comments ER Follow-up 05/25/2024 Encounter Details Date Type Department Care Team ([facility] st Contact Info) Description 05/25/2024 Telephone [facility] [address] [place], [place] [phone] Ivy Blanton MD [address] [place] [address] ER Follow-up Social History Tobacco Use Types Packs/Day Years [...] the past 12 months, has t he [employer], gas, oil or water company threatened to [...] AM EDT documented as of this encounter Miscellaneous Notes * Telephone Encounter - Rosalva Tovar RN - 05/25/2024 9:34 AM EST Please obtain ED report from [facility] ED , Pt seen 05/19/24. Thank you Triage call with [employer] language interpreter ID [id number]. Pt reports being seen in ED , [facility] 05/19/24. Pt was dx with asthma. Pt reports was prescribed antibiotics which were finished today. Pt doesn't know if prednisone was prescribed. Pt sx today are coughing alot, neg for wheezing or difficulty breathing. Pt is using nebulizer q 6hrs as prescribed while in Pt home and a red inhaler when Pt goes outside. Pt is prescribed: albuterol 108 (90 Base) MCG/ACT inhaler Sig: Inhale 2 puffs every 6 (six) hours if needed for wheezing. AND albuterol (2.5 MG/3ML) 0.083% nebulizer solution Sig: Take 3 mL (2.5 mg) by nebulization every 4 (four) hours if needed for wheezing. 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 Pt would like to be seen soon. Pt is given ASK apt with Dr. Castillo, today at 100pm. Pt is advised to continue to drink warm liquids with some honey, 2 tsp honey for cough. Pt agrees with disposition and home care advised. Insurance is verified as active prior tobooking. Request for ED report will be sent. Pt will bring ED paper work with Pt for apt in case inf ormation is not able to be obtained. Protocol Used: Asthma (Pediatric) Protocol-Based Disposition: See in Office or Video Visit Today Positive Triage Question: * Frequent cough with NO difficulty breathing * All higher-acuity triage questions were negative Care Advice Discussed: * Reassurance and Education - Mild Asthma Attack * Cough Treatment * Fluids - Offer More * Humidifier * Reasons To Call Back - Difficulty breathing occurs - Wheezing persists over 24 hours - MILD asthma attack lasts over 3 days - Your child becomes worse * Telephone Encounter - Andrés Garnett - 05/25/2024 8:56 AM EST Patient calling to report ED visit on : Date: 05/19/24 Hospital: [facility] Seen for: Asthma Symptom: Cough Outcome: Talk to a nurse or provider within 15 minutes Reason: Any trouble breathing through the mouth [place]guill[place] Speaker (Accepted Associate Professor Of Biblical Studies) documented in this encounter Plan of Treatment Not on file documented as of this encounter Visit Diagnoses Not on filedocumented in this encounter Additional Health Concerns Assessment Noted Time PHQ-9 Depression Total Score: 0 11/22/19 24 10:14 AM EDT documented as of this encounter Care Teams Stitching Machine Setter Relationship Specialty Start Date End Date Ivy Blanton MD [address] [place] [address] PCP - General Internal Medicine 11/22/23 documented as of this encounter
[2024-10-19 11:21] LABS: MANUAL DIFF FLAG NO
[2024-10-19 11:33] LABS: Basophils Absolute Auto 0.1 X10*3/uL (0.0-0.2); Basophils Percent Auto 0.5 % (0-2); Eosinophils Absolute Auto 0.3 X10*3/uL (0.0-0.4); Eosinophils Percent Auto 2.6 % (0-4); Hematocrit 36.7 % (37.0-47.0); Hemoglobin 11.6 g/dl (12.0-16.0); Imm Gran Abs Auto 0.03 X10*3/uL (0.00-0.03); Imm Gran Pct Auto 0.3 % (0.0-0.4); Lymphocytes Absolute Auto 2.7 X10*3/uL (1.2-4.9); Mean Corpuscular HGB Conc 31.6 g/dl (31.0-35.0); Mean Corpuscular Hemoglobin 22.1 pg (27.0-33.0); Mean Corpuscular Volume 69.9 fL (80.0-98.0); Mean Platelet Volume 10.8 fL (9.4-12.3); Monocytes Absolute Auto 0.6 X10*3/uL (0.1-1.2); Monocytes Percent Auto 5.5 % (2-11); Neutrophils Absolute Auto 7.3 x10*3/uL (2.0-8.3); Neutrophils Percent Auto 66.1 % (45-73); Platelet Count 314 X10*3/uL (160-400); Red Blood Count 5.25 X10*6/uL (4.20-5.50); Red Cell Distribution Width 15.3 % (11.0-16.0)
[2024-10-19 11:50] LABS: Estimated Average Glucose 111 mg/dL; Hemoglobin A1c % 5.5 % (<6.0); Total Hemoglobin (HGBA1C) 3121.8443 umol/L
[2024-10-19 12:39] LABS: HIV AB/AG Nonreactive (Nonreactive); HIV Num 1 0.09 S/CO (0.00-0.99); ~HepC Num1 0.27 S/CO (0.00-0.79); ~Hepatitis C Antibody Nonreactive (Nonreactive)
[2024-10-19 13:05] LABS: Folate 12.9 ng/mL (> or = 4.0); Vitamin B12 831 pg/mL (200-900)
[2024-10-19 13:06] LABS: Alanine Aminotransferase 12 U/L (0-31); Albumin Level 4.1 g/dL (3.5-5.0); Alkaline Phosphatase 90 U/L (39-117); Anion Gap 11 (12-20); Aspartate Amino Transferase 16 U/L (5-31); Bilirubin Total 0.3 mg/dL (0.0-1.0); Blood Urea Nitrogen 10 mg/dL (9-16); Calcium 9.3 mg/dL (8.4-10.2); Carbon Dioxide 24 mmol/L (22-29); Chloride 108 mmol/L (96-108); Cholesterol 159 mg/dL (<200); Estimated Glomerular Filt Rate > 60; Ferritin 27 ng/mL (10-250); Glucose Random 93 mg/dL (60-115); HDL Cholesterol 52 mg/dL (>40); Iron 38 mcg/dL (30-160); LDL Cholesterol Calculated 94 mg/dL (<100); Percent Iron Saturation 15 % (15-50); Potassium 3.8 mmol/L (3.3-5.1); Sodium 139 mmol/L (135-145); TSH reflex Free T4 1.25 uIU/mL (0.32-4.0); Total Iron Binding Capacity 257 mcg/dL (228-428); Total Protein 7.4 g/dL (6.5-8.0); Triglycerides 69 mg/dL (<150); Unsaturated Iron Binding 219 ug/dL; Vitamin D 25-OH Total 21.5 ng/mL (>30)
== END 2024-10-19 09:17 | disposition home or self-care (01) ==
LOC: HO.HHCL 09:16
PROVIDERS: Visit Provider Internal Medicine
DX: R53.82 Chronic fatigue, unspecified (principal)
CPT/HCPCS: 36415; 80053; 80061; 82306; 82607; 82728; 82746; 83036; 83540; 84443; 85025; 86803; 87389

== ENCOUNTER 2025-02-13 08:54 | Outpatient (REF) | payer OTHER, SELFPAY ==
--- OUTSIDE RECORDS SUMMARY | 2025-02-13 09:18 | XMS_ITS | Encounter Summary ---
Author Organization [employer] Address [address] [facility] 7 [place] [address] Care Team Providers Care Car Repossessor Name Role Phone Ivy Blanton MD Primary Care Provide r Reason for Visit * Reason Onset Date Comments ER Follow-up 05/25/2024 Encounter Details Date Type Department Care Team ([facility] Contact Info) Description 05/25/2024 Telephone [facility] [address] [place], [place] [phone] Ivy Blanton MD [address] [place] [address] ER Follow-up Social History Tobacco Use Types [...] AM EST Please obtain ED report from [facility] ED , Pt seen 05/19/24. Thank you Triage call with Big Language stopboard assembler ID [id number]. Pt reports being seen in ED , [facility] 05/19/24. Pt was dx with asthma. 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 Pt would like to be seen soon. [...] ED visit on : Date: 05/19/24 Hospital: [facility] Seen for: Asthma Symptom: Cough Outcome: Talk to a nurse or provider within 15 minutes Reason: Any trouble breathing through the mouth Malawian Speaker (Accepted Prospecting Driller) documented in this encounter Plan of Treatment Upcoming Encounters Date Type Department Care Team (Late st Contact Info) Description 03/27/2025 9:15 AM EDT Office Visit [facility] [address] [place] [address] Ivy Blanton MD [address] [place] [address] documented as of this encounter Visit Diagnoses Not on filedocumented in this encounter Additional Health Concerns Assessment Noted Time PHQ-9 Depression Total Score: 0 11/22/19 24 10:14 AM EDT documented as of this encounter Care Teams Car Repossessor Relationship Specialty Start Date End Date Ivy Blanton MD [address] [place] [address] PCP - General Internal Medicine 11/22/23 documented as of this encounter
--- OUTSIDE RECORDS SUMMARY | 2025-02-13 09:18 | XMS_ITS | Clinical Summary ---
Author Organization [employer] [facility] it Address [address] [place] [address] Care Team Providers Care Survey Coordinator Name Role Phone Ivy Blanton MD Primary Care Provide r Surgical History Surgery Date Site/Laterality Comments TONSILLECTOMY PROCEDURE: HISTORICAL TONSILLECTOMY TUBAL LIGATION PROCEDURE: HISTORICAL TUBAL LIGATION UPPER GASTROINTESTINAL ENDOSCOPY 2012 PROCEDURE: VT UPPER GI ENDOSCOPY PERFORMED; COMMENT: [facility] COLONOSCOPY 02/01/2017 PROCEDURE: HISTORICAL COLONOSCOPY; COMMENT: Dr. Montes -apparently normal ESOPHAGOGASTRODUODENOSCOPY 02/01/2017 PROCEDURE: VT EGD TRANSORAL BIOPSY SINGLE/MULTIPLE; COMMENT: Dr. Montes -gastritis. Biopsy consistent with chronic active gastritis with H. pylori infection. OTHER SURGICAL HISTORY 08/22/2017 PROCEDURE: CONTRAST X-RAYS, GALLBLADDER; COMMENT: HIDA scan is normal OTHER SURGICAL HISTORY 2009 N/A PROCEDURE: CERVICAL LEEP CONE BIOPSY [facility] PATHOLOGY EX ESOPHAGOGASTRODUODENOSCOPY 11/04/2021 PROCEDURE: VT EGD TRANSORAL BIOPSY SINGLE/MULTIPLE; COMMENT: normal, biopsy pending Medical History Medical History Date Comments Anemia 06/29/2013 DX:Anemia Anxiety 06/29/2013 DX:Anxiety; COMM ENT: [facility] q2w; [...] 5 Years) and At-Risk Patients (6 to 49 Years) (1 of 2 - PCV) 1997 Colorectal Cancer Screening: Colonoscopy 06/20/2022 HIV Screening 06/20/2022 Hepatitis C Screening 06/20/2022 Social Influencers of Health Screening 06/20/2022 DTaP,Tdap,and Td Vaccines (2 - Td or Tdap) 09/28/2023 09/27/2013 COVID-19 Vaccine (2023-2 5 season) 2024 Depression Screening 07/18/2024 Influenza Vaccine (#1) 2025 Cervical Cancer Screening: P ap Smear 04/19/2027 [...] age to complete this topic Meningococcal B Vaccine Aged Out No l onger eligible based on patient's age to complete [...] RESULTING AGENCY - 04/24/2024 1:15 PM EDT [id number] THINPREP PAP, IMAGED: NEGATIVE FOR SQUAMOUS INTRAEPITHELIAL LESION AND MALIGNANCY ION PARIKH(ASCP) (CASE ELECTRONICALLY SIGNED 04 24 2024) RESULT OF APTIMA HIGH RISK HPV ASSAY: HIGH RISK HPV: NEGATIVE (SEROTYPES 16,18,31,33,35,39,45,51,52,56,58,59,66,68) COMPLETED ON 2024-04-20 ADEQUACY: SATISFACTORY ENDOCERVICAL/TRANSFORMATION ZONE COMPONENT PRESENT. SOURCE: THINPREP PAP HPV ANY DX: REFLEX 16 AND 18, CERVICAL, IMAGED CLINICAL INFORMATION: HPV ANY DIAGNOSIS. HORMONES, [place] [facility], [Z01.419 ENCOUNTER FOR GYNECOLOGICAL EXAMINATION (GENERAL) (ROUTINE) WITHOUT ABNORMAL FINDINGS] us Phylicia Moore CNBal[facility] LAB CYTOLOGY ORDERABLES Final Result HISTORICAL TESTING LAB RESULTING AGENCY from Last 3 Months or Most Recently Relevant to Health Maintenance Care Teams Survey Coordinator Relationship Specialty Start Date End Date Ivy Blanton MD [address] [phone] PCP - General 01/13/24
--- OUTSIDE RECORDS SUMMARY | 2025-02-13 09:18 | XMS_ITS | Clinical Summary ---
Author Organization [facility] Address [address] [place] [address] Care Team Providers Care Rectangular Tank Cooper Name Role Phone Unavailable Primary Care Provider [...] mg tabletIndication s:Mild intermittent asthma without complication ([facility]) Take 1 Tab by mouth nightly at [...] mcg/actuation inhalerIndicatio ns:Mild intermittent asthma without complication ([facility]) INHALE 2 PUFFS INTO THE LUNGS EVERY [...] nebulizer accessoriesIndic ations:Mild intermittent asthma without complication ([facility]) Use as directed 1 Device 9 Active [...] pylori s/p Rx. Had EGD ( ~2011 @[facility]). Constipation 05/13/2015 Mild intermittent asthma without complication ([facility]) 05/13/2015 Overview (05/13/2015): Symptoms depend on weather changes. Only on Albuterol. Had PFTs in [place] ~2013. Dizziness 05/13/2015 Overview (05/13/2015): Says that she was treated for vertigo in the past H/O abnormal cervical Papanicolaou smear 015 Overview (05/13/2015): ~2009 as per pt. S/p ? Colposcopy / Bx. Had normal PAP subsequently- last PAP 07/2014. Following with Grouter Helper at [facility]- [place] Leukocytosis 05/13/2015 Overview (05/13/2015): Wbc=11.5(05/13/15) ? [...] 74 02/20/2019 2:43 PM EDT Temperature 36.9 C (98.5 F) 02/08/2019 9:17 AM EDT Respiratory Rate 16 02/08/2019 9:17 AM EDT Oxygen Saturation 98% 01/06/2018 8:49 AM EDT Inhaled Oxygen Concentration - - Weight 64.4 kg (142 lb) 02/20/2019 2:43 PM EDT Height 152.4 cm (5') 02/08/2019 9:17 AM EDT Body Mass Index 27.73 02/08/2019 9:17 AM EDT Plan of Treatment Not on file Insurance [facility]
[2025-02-16 12:28] LABS: TS Negative Control Passed; TS Panel A 1; TS Panel B 2; TS Positive Control Passed; TSpotTB Negative (Negative)
== END 2025-02-13 08:55 | disposition home or self-care (01) ==
LOC: HO.HHCL 08:54
PROVIDERS: PCP Internal Medicine; Visit Provider Internal Medicine
DX: Z11.1 Encounter for screening for respiratory tuberculosis (principal)
CPT/HCPCS: 36415; 86481

== ENCOUNTER 2025-03-14 10:12 | Outpatient (AMB) | payer OTHER, SELFPAY ==
--- NOTE | 2025-03-14 10:23 | MHC.OFFVIS ---
Vital Signs 03/14/25 10:33 Height 4 ft 11 in Weight 130 lb BMI 26.3 BP 144/78 H Blood Pressure Location Lt brachial Position Sitting Pulse 72 Intake Visit Reasons: Breast issues Intake Note: Patient is seen in office for evaluation of left breast pain 6 o'clock. Pt c/o: pt states she bump her breast with the corner of the wall back in July and been having pain, pain comes and goes, states discomfort due to heavy breast size, admits maternal grandmother breast cancer, no prior breast infections or concerns, no to breast feeding, first child at age of 18 yrs old mm: 02/14/25 Roller Skates Assembler Required: Yes Roller Skates Assembler Language: Vise Hand Services: Roller Skates Assembler Present Roller Skates Assembler Name: Nanette LANGSTON Information Interpreted: non-clinical & clinical Precision Lens Grinder Apprentice: Precision Lens Grinder Apprentice Present Accompanied by: Self / Same As Patient Allergies No Known Allergies Allergy (Verified 03/14/25 10:29) Medication List - Last Reconciled 03/14/25 by Ranjith Mercado MD albuterol 90 mcg/actuation mcg inhalation albuterol sulfate 2.5 mg inhalation Q6H cholecalciferol (vitamin D3) 50 mcg PO DAILY lorazepam (Ativan) 0.5 mg PO DAILY PRN HPI Comments Details: 44-year-old female patient presenting for evaluation of left breast pain. She reports striking her left breast in July 2024 against the corner of the wall. Since this time she has had significant pain especially in the lower portion of the left breast. She denied any bruising, palpable mass or other associated symptoms. She does report pain in the right breast as well as bilateral shoulder pain because of the heaviness of her breasts. She denies a prior history of breast problems or breast surgeries. Her most recent bilateral mammogram and left breast ultrasound revealed no mammographic or sonographic evidence of malignancy (BI-RADS 1). Her family history is significant for a maternal aunt with breast cancer. Her maternal grandmother was treated for colon cancer. Family history is negative for ovarian cancer. The patient's menarche was at 10. She is 5 para 3 with 3 SABs. Her 1st child was born when she was 18 years old. Her LMP was 03/02/2025. [facility] Surgical History Hx of tonsillectomy History of loop electrical excision procedure (LEEP) History of tubal ligation Family History Maternal Grandmother Breast cancer Social History Alcohol intake: never Patient Tobacco Use Status: Never used Tobacco Female Reproductive History Menstrual Age of Menarche: 10 Date of last menstrual period: 03/02/25 Total pregnancies: 5 Number of Living Children: 3 Review of Systems Const All systems reviewed & are unremarkable except as noted in HPI and below Physical Exam Vital Signs: Last Vital Signs Pulse 72 03/14/25 10:33 BP 144/78 H 03/14/25 10:33 BMI result Body Mass Index 26.3 Const General: cooperative and no acute distress Nutritional Appearance: well nourished Orientation/consciousness: patient oriented x3 Limitations: no limitations HEENT Head: Yes normocephalic and Yes atraumatic Ears: hearing grossly normal bilaterally Chest Other: Left breast: No skin change, no nipple retraction, no nipple discharge, no palpable mass, no enlarged lymph nodes. Right breast: No skin change, no nipple retraction, no nipple discharge, no palpable mass, no enlarged lymph nodes Chest/axillae images:  1. 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 The pain became more significant after trauma to the left breast in July 2023. She reports the pain comes and goes but is most significant in the lower portion of the left breast. She also feels that the pain is aggravated by the weight of her breast. Examination today revealed no suspicious findings in either breast. There is increased tenderness in the lower quadrants especially the lower inner quadrant of the left breast but there is also tenderness in the right breast as well. Mammogram and ultrasound of 02/14/2025 revealed no suspicious changes in either breast (BI-RADS 1). Patient is considering breast reduction surgery and requested referral to Plastic surgery. I do feel this makes sense given the size of her breast and the significance of her symptoms. She should follow up in our office as needed. She should continue with routine follow-up mammograms. Orders: Referrals Plastic Surgery Referral N62 - Hypertrophy of breast, N64.4 - Mastodynia Coding Level of Care Code New Pt Level 4 (71264) Diagnoses Pain of both breasts N64.4 Gigantomastia N62
[2025-03-14 10:33] VITALS: BP 144/78; PULSE 72; BMI 26.3
--- OUTSIDE RECORDS SUMMARY | 2025-03-14 11:30 | XMS_ITS | Encounter Summary ---
Author Organization [employer] Address [address] [facility] [address] [place] [address] Care Team Providers Care Change Control Coordinator Name Role Phone Ivy Blanton MD Primary Care Provide r Encounter Details Date Type Department Care Team ([facility] st Contact Info) Description 05/03/2024 Orders Only [facility] [address] [place] [address] Provider, MD Inez Social History Tobacco Use [...] as of this encounter Plan of Treatment Upcoming Encounters Date Type Department Care Team (Late st Contact Info) Description 03/27/2025 9:15 AM EDT Office Visit [facility] [address] [place] [phone] Ivy Blanton MD [address] [place] [phone] documented as of this encounter Procedures Procedure Name Priority Date/Time Associated Diagnosis Comments HM PAP/HPV Routine 02/03/2021 2:29 PM EDT documented in this encounter Results * HM PAP/HPV (02/03/2021 2:29 PM EDT) Historical Provider HEALTH MAINTENANCE Final Result documented in this encounter Visit Diagnoses Not on filedocumented in this encounter Additional Health Concerns Assessment Noted Time PHQ-9 Depression Total Score: 0 11/22/19 10:14 AM EDT documented as of this encounter Care Teams Change Control Coordinator Relationship Specialty Start Date End Date Ivy Blanton MD [address] [place] [phone] PCP - General Internal Medicine 11/22/23 documented as of this encounter
--- OUTSIDE RECORDS SUMMARY | 2025-03-14 11:30 | XMS_ITS | Encounter Summary ---
Author Organization [employer] Address [address] [facility] 7 [place] [address] Care Team Providers Care Operations Intelligence Superintendent Name Role Phone Ivy Blanton MD Primary Care Provide r Reason for Visit * Reason Onset Date Comments ER Follow-up 05/25/2024 Encounter Details Date Type Department Care Team ([facility] Contact Info) Description 05/25/2024 Telephone [facility] [address] [place], [place] [phone] Ivy Blanton MD [address] [place] [address] ER Follow-up Social History Tobacco Use Types [...] AM EST Please obtain ED report from [facility] ED , Pt seen 05/19/24. Thank you Triage call with Big Language lithopress operator ID [id number]. Pt reports being seen in ED , [facility] 05/19/24. Pt was dx with asthma. 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 Pt would like to be seen soon. 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) documented in this encounter Plan of Treatment Upcoming Encounters Date Type Department Care Team (Late st Contact Info) Description 03/27/2025 9:15 AM EDT Office Visit [facility] [address] [place] [address] Ivy Blanton MD [address] [place] [address] documented as of this encounter Visit Diagnoses Not on filedocumented in this encounter Additional Health Concerns Assessment Noted Time PHQ-9 Depression Total Score: 0 11/22/19 24 10:14 AM EDT documented as of this encounter Care Teams Operations Intelligence Superintendent Relationship Specialty Start Date End Date Ivy Blanton MD [address] [place] [address] PCP - General Internal Medicine 11/22/23 documented as of this encounter
--- OUTSIDE RECORDS SUMMARY | 2025-03-14 11:30 | XMS_ITS | Clinical Summary ---
Author Organization [employer] Address [address] [facility] [address] [place] [address] Care Team Providers Care Wire Spooler Name Role Phone Ivy Blanton MD Primary Care Provide r Allergies No known active allergies Medications * This document contains information received from the source organization and may not represent a complete record from that organization. FLUoxetine (PROzac) 20 MG capsule TOME 1 C PSULA POR V A ORAL TODOS LOS D EN LA MA MURALI 05/23/20 24 Active cholecalciferol VITAMIN D (Vitamin D-3) 50 MCG (2000 UT) capsule TOME 1 C PSULA POR V A ORAL TODOS LOS D Active albuterol 108 (90 Base) MCG/ACT inhalerIndicatio ns:Mild intermittent asthma, unspecified whether complicated Inhale 2 puffs every 6 (six) hours if needed for wheezing. 18 g 2 10/05/19 25 026 Active albuterol (2.5 MG/3ML) 0.083% nebulizer solutionIndicati ons:Mild intermittent asthma, unspecified whether complicated Take 3 mL (2.5 mg) by nebulization every 4 (four) hours if needed for wheezing. 75 mL 3 10/05/19 25 026 Active LORazepam (Ativan) 0.5 MG tabletIndication s:Anxiety Use if needed for traveling 4 tablet 10/05/19 25 Active naproxen (Naprosyn) 500 MG tablet Take 1 tablet (500 mg) by mouth if needed in the morning and at bedtime for mild pain. 40 tablet 1 01/09/20 25 026 Active Diclofenac Sodium 1 % gel Apply 2 g topically if needed in the morning, at noon, in the evening, and at bedtime (pain). 150 g 3 01/09/20 25 Active fluticasone furoate (Arnuity Ellipta) 100 MCG/ACT inhalerIndicatio ns:Mild intermittent asthma, unspecified whether complicated Inhale 1 puff Once per day. Rinse mouth with water after use to reduce aftertaste and incidence of candidiasis. Do not swallow. 1 each 02/13/20 25 026 Active cholecalciferol (Vitamin D-3) 25 MCG (1000 UT) tablet Take 1 tablet (25 mcg) by mouth Once per day. 60 tablet 3 02/13/20 25 Active acetaminophen (Tylenol 8 Hour) 650 MG ER tablet Take 1 tablet (650 mg) by mouth every 8 (eight) hours if needed for mild pain. Do not crush, chew, or split. 40 tablet 1 01/09/20 25 025 Active Problems Problem Noted Date Diagnosed Date [...] Encounters Date Type Department Care Team Description 02/19/[address] [facility] [address] [place] [address] Ivy Blanton MD cologuard outreach 02/13/[address] [facility] [address] [place] [address] Ivy Blanton MD Tspot Order 02/12/2025 2:00 PM EDT Office Visit [address] [address] [facility], [facility] Healthcare maintenance (Primary Dx); Mild intermittent asthma, unspecified whether complicated; Encounter for immunization; Dietary counseling; Exercise counseling 02/12/2025 Travel 02/11/[address] [address] Ivy Blanton MD Chart Prep 02/11/[address] [address] Sindy Vo DO 02/04/2025 Patient Outreach [address] [address] Ivy Blanton MD Pre-visit Planning ([facility] screening completed on 09/26/2024) 01/08/2025 11:45 AM EDT Office Visit [address] [address] Sindy Vo DO Pain of left breast (Primary Dx) 01/08/2025 Travel 01/07/[address] [address] Ivy Blanton MD Nurse Triage 12/25/[address] [address] Ivy Blanton MD SEP RECALL from Last 3 Months Immunizations Immunization Administration Dates Next Due Influenza, IIV3, injectable 06/05/2008, 6 Pneumococcal Conjugate PCV 20 02/12/2025 Pneumococcal Polysaccharide PPSV23 06/01/2006 Tdap 02/12/2025 Social History Tobacco Use Types Packs/Day Years [...] Answer Date Recorded Patient Health Questionnaire-9 Score 4 02/12/2025 Patient Health Questionnaire-9 Score 4 02/12/2025 Last PHQ-9: Questionnaire Data Not on file 0 02/12/2025 Housing Stability Answer Date Recorded What is [...] Date Recorded Patient Health Questionnaire-2 Score 0 02/12/2025 Internet Access Answer Date Recorded Internet Access Q1 Yes 09/26/2024 Internet Access Q2 Not on file 09/26/2024 Comments No Sex and Gender Information Value Date Recorded Sex Assigned at Female 05/17/2022 10:25 AM EDT Legal Sex Female 10:25 AM EDT Gender Identity Female 05/17/2022 10:25 AM EDT Sexual Orientation Choose not to disclose 2021 10:25 AM EDT Last Filed Vital Signs Vital Sign Reading Time Taken Comments Blood Pressure 126/86 02/12/2025 1:48 PM EDT Pulse 84 02/12/2025 1:48 PM EDT Temperature 36.4 C (97.6 F) 02/12/2025 1:48 PM EDT Respiratory Rate 20 02/12/2025 1:48 PM EDT Oxygen Saturation 99% 01/08/2025 12:17 PM EDT Inhaled Oxygen Concentration - - Weight 59.7 kg (131 lb 9.6 oz) 02/12/2025 1:48 P M EDT Height 149.9 cm (4' 11 ) 02/12/2025 1:48 PM EDT Body Mass Index 26.58 02/12/2025 1:48 PM EDT Plan of Treatment Upcoming Encounters Date Type Department Care Team (Late st Contact Info) Description 03/27/2025 9:15 AM EDT Office Visit [facility] [address] [place] [address] Ivy Blanton MD [address] [place], [place] [phone] Health Maintenance Due Date Last Done Comments CT Colonography 1978 Colonoscopy 1978 Colorectal Cancer Screening 1978 FIT DNA/Cologuard 1978 FIT 1978 FOBT 1978 Sigmoidoscopy 1978 Alcohol/Substance Use Screening 1990 Family Planning (PISQ) 1993 Hepatitis B Vaccines (1 of 3 - 19+ 3-dose series) 1997 Dental Prophylaxis 06/22/2015 12/20/2014 Dental Oral Exam 03/11/2020 09/10/2019, 02/23/2017, 10/04/2014 Dental X-Ray: Bitewings 09/11/2020 09/10/19 20, 02/23/2017, 10/04/2014 Dental X-Ray: Full Mouth 09/11/2022 020, 10/04/2014 COVID-19 Vaccine (3 - 2023-2 5 season) 2024 01/07/2021, 12/17/2020 Influenza Vaccine (#1) 2025 8, 06/01/2006 SDOH Screening 09/26/2025 09/26/2024 Cervical Cancer Screening 02/03/2026 HPV/Cotest 02/03/2026 Pap Smear 02/03/2026 02/03/2021 Depression Screening 02/12/2026 02/12/2025, 02/12/2025 Disability Screening 02/12/2026 02/12/2025 Mammogram 02/14/2026 02/14/2025, 02/14/2025, 04/17/2024 Tobacco Screening 02/19/2026 02/19/2025 Zoster Vaccines (1 of 2) 2028 DTaP/Tdap/Td Vaccines (3 - T d or Tdap) 02/12/2035 02/12/2025, 09/27/2013 RSV Patients and Patients Aged 60 years or older (1 - 1-dose 75+ series) 2053 HIV Screening Completed 10/19/2024 Hepatitis C Screening Completed 10/19/2024 , 11/22/2023 Pneumococcal Vaccine: Pediatrics (0 to 5 Years) and At-Risk Patients (6 to 49) Years Completed 02/12/2025, 06/01/2006 HIB Vaccines Aged Out No longer eligi [...] Name Priority Date/Time Associated Diagnosis Comments BI US BREAST COMPLETE LEFT Routine 02/14/2025 Pain of left breast BI MAMMOGRAM DIAGNOSTIC TOMOSYNTHESIS BILATERAL Routine 02/14/2025 Pain of left breast T-SPOT(R).TB Routine 02/13/2025 9:08 AM EDT Encounter for screening for respiratory tuberculosis HEPATITIS C AB W/REFL TO HCV RNA, QN, PCR Routine 10/19/2024 9:18 AM EDT Chronic fatigue HIV 1/2 ANTIGEN/ANTIBODY, FOURTH GENERATION W/RFL Routine 10/19/2024 9:18 AM EDT Chronic fatigue HM PAP/HPV Routine 02/03/2021 2:29 PM EDT INTRAORAL - COMPLETE SERIES OF RADIOGRAPHIC IMAGES Routine 09/10/2019 12:00 AM EST PERIODIC ORAL EVALUATION - ESTABLISHED PATIENT Routine 09/10/2019 12:00 AM EST PROPHYLAXIS - ADULT Routine 12/20/2014 1 2:00 AM EDT from Last 3 Months or Most Recently Relevant to Health Maintenance Results * BI Mammogram Diagnostic Tomosynthesis Bilateral (02/14/2025) Anatomical Region Laterality Modality Breast Bilateral Mammography us Sindy Maciasak DO IMG BI PROCEDURES Final Resu lt * BI US Breast Complete Left (02/14/2025) Anatomical Region Laterality Modality Breast Left Ultrasound us Sindy Maciasak DO IMG US PROCEDURES Final Resu lt * T-SPOT??.TB (02/13/2025 9:08 AM EDT) [facility] T Spot TB Negative Negative [facility] Comment:A negative test resu lt does not exclude the possibilityof exposure to or infection with Mycobacteriumtuberculosis (M. tuberculosis). Patients with recentexposure to TB infected individuals exhibiting anegative T-SPOT.TB result should be considered forretesting within 6 weeks or if other relevant clinicalsymptoms indicate. Results from T-SPOT.TB testing mustbe used in conjunction with each individual'sepidemiological history, current medical status,and results of other diagnostic evaluations.The T-SPOT.TB test is qualitative and results arereported as positive, borderline, or negative, giventhat the test controls perform as expected. In linewith the Centers for Disease Control and Prevention's2010 recommendation to report quantitative measurementsalongside the qualitative result, the laboratoryprovides spot counts for informational purposes only.The T-SPOT.TB test should not be interpreted as aquantitative test. TS PANEL A 1 [facility] TS PANEL B 2 [facility] Negative Control Passed [facility] Positive Control Passed [facility] Comment:For additional infor kimmie, please refer [email or web address]/FPV511(This link is being provided for informational/educational purposes only.)REPORT COMMENT:REC'D IN CHYTHIS TEST WAS PERFORMED AT:[employer] [id number] [place] [id number] SIMMONS MD,PHD 02/13/2025 9:08 AM EDT 02/13/2025 11:18 AM EDT Ivy Willett MD LAB BLOOD ORDERABLES Final Result Performing Organization Address [facility]/ZIP Co de Phone Number [facility] [address] [place] [phone] * Hepatitis C Antibody with Reflex to HCV, RNA, Quantitative, Real-Time PCR (10/19/2024 9:18 AM EDT) [facility] Hepatitis C Antibody Nonreactive Nonreactive [facility] Comment:Antibodies to HCV no t detected; does not exclude early acuteHCV infection. Blood Venous blood specimen / Unknown 10/19/2024 9:18 AM EDT 10/19/2024 11:18 AM EDT Ivy Willett MD LAB BLOOD ORDERABLES Final Result Performing Organization Address [facility] Co de Phone Number [facility] [address] [place] [phone] * HIV-1/2 Antigen and Antibodies, Fourth Generation, with Reflexes (10/19/2024 9:18 AM EDT) [facility] HIV AB/AG Nonreactive Nonreactive [facility] Comment:HIV-1 p24 Ag and/or HIV-1/HIV-2 Ab not detected.A test result that is nonreactive does not exclude thepossibility of exposure to or infection with HIV-1 and/orHIV-2. Nonreactive results in this assay for individualswith prior exposure to HIV-1 and/or HIV-2 may be due toantigen and antibody levels that are below the limit ofdetection of this assay.The SelpheeniDatamin[employer] HIV Ag/Ab Combo assay result andsupplemental assay results should be interpreted inconjunction with the patient's clinical presentation,history and other laboratory results. If the results areinconsistent with clinical evidence, additional testing issuggested to confirm the result. Blood Venous blood specimen / Unknown 10/19/2024 9:18 AM EDT 10/19/2024 11:18 AM EDT Ivy Willett MD LAB BLOOD ORDERABLES Final Result [facility] [address] [place] [address] [phone] * HM PAP/HPV (02/03/2021 2:29 PM EDT) us Historical Provider HEALTH MAINTENANCE Final Result from Last 3 Months or Most Recently Relevant to Health Maintenance Insurance [facility] Care Teams Wire Spooler Relationship Specialty Start Date End Date Ivy Blanton MD [address] [place] [address] PCP - General Internal Medicine 11/22/23
--- OUTSIDE RECORDS SUMMARY | 2025-03-14 11:30 | XMS_ITS | Clinical Summary ---
Author Organization [employer] [facility] it Address [address] [place] [address] Care Team Providers Care Yarn Dumper Name Role Phone Ivy Blanton MD Primary Care Provide r Surgical History Surgery Date Site/Laterality Comments TONSILLECTOMY PROCEDURE: HISTORICAL TONSILLECTOMY TUBAL LIGATION PROCEDURE: HISTORICAL TUBAL LIGATION UPPER GASTROINTESTINAL ENDOSCOPY 2012 PROCEDURE: ND UPPER GI ENDOSCOPY PERFORMED; COMMENT: [facility] COLONOSCOPY 02/01/2017 PROCEDURE: HISTORICAL COLONOSCOPY; COMMENT: Dr. Montes -apparently normal ESOPHAGOGASTRODUODENOSCOPY 02/01/2017 PROCEDURE: ND EGD TRANSORAL BIOPSY SINGLE/MULTIPLE; COMMENT: Dr. Montes -gastritis. Biopsy consistent with chronic active gastritis with H. pylori infection. OTHER SURGICAL HISTORY 08/22/2017 PROCEDURE: CONTRAST X-RAYS, GALLBLADDER; COMMENT: HIDA scan is normal OTHER SURGICAL HISTORY 2009 N/A PROCEDURE: CERVICAL LEEP CONE BIOPSY [facility] PATHOLOGY EX ESOPHAGOGASTRODUODENOSCOPY 11/04/2021 PROCEDURE: ND EGD TRANSORAL BIOPSY SINGLE/MULTIPLE; COMMENT: normal, biopsy pending Medical History Medical History Date Comments Anemia 06/29/2013 DX:Anemia Anxiety 06/29/2013 DX:Anxiety; [facility] q2w; [...] RESULTING AGENCY - 04/24/2024 1:15 PM EDT [id number] THINPREP PAP, IMAGED: NEGATIVE FOR SQUAMOUS INTRAEPITHELIAL LESION AND MALIGNANCY ION PARIKH(ASCP) (CASE ELECTRONICALLY SIGNED 04 24 2024) RESULT OF APTIMA HIGH RISK HPV ASSAY: HIGH RISK HPV: NEGATIVE (SEROTYPES 16,18,31,33,35,39,45,51,52,56,58,59,66,68) COMPLETED ON 2024-04-20 ADEQUACY: SATISFACTORY ENDOCERVICAL/TRANSFORMATION ZONE COMPONENT PRESENT. SOURCE: THINPREP PAP HPV ANY DX: REFLEX 16 AND 18, CERVICAL, IMAGED CLINICAL INFORMATION: HPV ANY DIAGNOSIS. HORMONES[place] [facility] [place] [Z01.419 ENCOUNTER FOR GYNECOLOGICAL EXAMINATION (GENERAL) (ROUTINE) WITHOUT ABNORMAL FINDINGS] us Phylicia Moore CNBalaji LAB CYTOLOGY ORDERABLES Final Result HISTORICAL TESTING LAB RESULTING AGENCY from Last 3 Months or Most Recently Relevant to Health Maintenance Care Teams Yarn Dumper Relationship Specialty Start Date End Date Ivy Blanton MD [address] [phone] PCP - General 01/13/24
--- OUTSIDE RECORDS SUMMARY | 2025-03-14 11:30 | XMS_ITS | Clinical Summary ---
Author Organization [facility] Address [address] [place] [address] Care Team Providers Care Telephone Sex Worker Name Role Phone Unavailable Primary Care Provider [...] mg tabletIndication s:Mild intermittent asthma without complication ([facility]) Take 1 Tab by mouth nightly at [...] mcg/actuation inhalerIndicatio ns:Mild intermittent asthma without complication ([facility]) INHALE 2 PUFFS INTO THE LUNGS EVERY [...] nebulizer accessoriesIndic ations:Mild intermittent asthma without complication ([facility]) Use as directed 1 Device 9 Active [...] pylori s/p Rx. Had EGD ( ~2011 @[facility]). Constipation 05/13/2015 Mild intermittent asthma without complication ([facility]) 05/13/2015 Overview (05/13/2015): Symptoms depend on weather changes. Only on Albuterol. Had PFTs in [place] ~2013. Dizziness 05/13/2015 Overview (05/13/2015): Says that she was treated for vertigo in the past H/O abnormal cervical Papanicolaou smear 015 Overview (05/13/2015): ~2009 as per pt. S/p ? Colposcopy / Bx. Had normal PAP subsequently- last PAP 07/2014. 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 [...] of Treatment Not on file [facility]
== END 2025-03-14 10:56 | disposition home or self-care (01) ==
LOC: HO.HGS 10:13
PROVIDERS: PCP Internal Medicine; Visit Provider Surgery
DX: N64.4 Mastodynia (principal); N62 Hypertrophy of breast
CPT/HCPCS: 99204

== ENCOUNTER → 2025-03-14 10:12 | Outpatient (BNVA) | payer OTHER, SELFPAY | PROVIDERS: PCP Internal Medicine; Visit Provider Surgery | DX: N64.4 Mastodynia (principal); N62 Hypertrophy of breast; Z80.3 Family history of malignant neoplasm of breast | CPT/HCPCS: 99202 ==

== ENCOUNTER 2025-03-15 08:38 | Outpatient (AMB) | payer OTHER, SELFPAY ==
--- NOTE | 2025-03-15 09:03 | MHC.OFFVIS ---
Vital Signs 03/15/25 09:09 Height 4 ft 11 in Weight 130 lb BMI 26.3 BP 116/74 Blood Pressure Location Rt brachial Position Sitting Pulse 68 Pulse Source Pulse Oximeter Pulse Oximetry (%) 99 Oxygen Delivery Method Room Air Intake Visit Reasons: Colonoscopy Screening Intake Note: New pt for recall colo screening. Last colo ~ 16 years ago. Normal results. CC: Pt denies any GI sx or concerns at this time. No pertinent FMHx. Nurse Office Required: Yes Nurse Office Services: Nurse Office Present Nurse Office Name: Nancy [phone] Information Interpreted: clinical only Accompanied by: Self / Same As Patient Allergies No Known Allergies Allergy (Verified 03/15/25 09:26) HPI HPI Colonoscopy Screening: Details: 44 year old? female here today for pre colonoscopy screening.? Patient was sent to us by her PCP.? Patient had colonoscopy at age of 28. Patient's grandmother diagnosed with CRC. Patient had upper endoscopy in the past and was found to have H pylori and treated. However patient did not finish the antibiotic. Requested again and was positive. It has been over a year since she saw her GI specialist. Currently patient is reporting epigastric pain and acid reflux. Patient is not on any PPI. ? Denies history of difficulty with sedation or anesthesia in the past.? Negative for history of sleep apnea.? Denies any history of cardiac, renal, pulmonary, or hepatic disease.?? No history of infectious? diseases like hepatitis A, B, C, HIV or tuberculosis.? Patient is not on any anticoagulation [facility] Medical History (Updated 03/15/25 @ 19:35 by Aline Hernandez [facility]) History of Helicobacter pylori infection GERD (gastroesophageal reflux disease) Surgical History (Updated 03/15/25 @ 09:15 by SHIV Gonzalez) Hx of colonoscopy Hx of tonsillectomy History of loop electrical excision procedure (LEEP) History of tubal ligation Family History Maternal Grandmother Breast cancer Social History Alcohol intake: never Patient Tobacco Use Status: Never used Tobacco Female Reproductive History Menstrual Age of Menarche: 10 Review of Systems Const Denies weight gain and Denies weight loss ENT Reports no additional complaints, Denies dysphagia and Denies odynophagia Card Reports no additional complaints Resp Reports no additional complaints GI Reports abdominal pain (Epigastric), Denies belching, Denies melena, Reports bloating (Occasional), Denies change in bowel habits, Denies dysphagia, Denies excessive flatus, Denies dyspepsia, Reports heartburn, Denies diarrhea, Denies loose stools, Denies nausea, Denies odynophagia and Denies vomiting Reports no additional complaints Musc Reports no additional complaints Neuro Reports no additional complaints Psych Reports no additional complaints Endo Reports no additional complaints Physical Exam Vital Signs: Last Vital Signs Pulse 68 03/15/25 09:09 BP 116/74 03/15/25 09:09 Pulse Ox 99 03/15/25 09:09 Oxygen Delivery Method Room Air 03/15/25 09:09 BMI result Body Mass Index 26.3 Const General: healthy appearing, no acute distress and well developed Nutritional Appearance: well nourished Orientation/consciousness: patient oriented x3 Resp Effort & Inspection: normal respiratory effort, able to speak in complete sentences, no tracheal deviation and symmetric chest movement Auscultation: clear to auscultation bilaterally Cardio Rate: regular rate GI Inspection: Yes normal to inspection and No distended Palpation (GI): Soft to palpation, not firm, nontender and No hepatosplenomegaly present Auscultation: normal bowel sounds General: Yes no CVA tenderness Back/Spine/Pelvis Back: no CVA tenderness Skin General skin exam: elasticity normal, turgor normal and dry skin Neuro General: patient oriented x3 Psych Appearance: grossly normal Mental Status: mental status grossly normal Assessment & Plan Assessment & Plan (1) Screen for colon cancer: Code(s): Z12.11 - Encounter for screening for malignant neoplasm of colon (2) GERD (gastroesophageal reflux disease): Code(s): K21.9 - Gastro-esophageal reflux disease without esophagitis Category: Medical Qualifiers: Esophagitis presence: esophagitis presence not specified Qualified Code(s): K21.9 - Gastro-esophageal reflux disease without esophagitis (3) History of Helicobacter pylori infection: Code(s): Z86.19 - Personal history of other infectious and parasitic diseases Category: Medical Plan Patient denies any cardiac or respiratory symptoms.? Patient reports epigastric pain and burning. Treated for a H pylori in the past, however patient never finish the treatment. Will check for H pylori today. Will check transglutaminase, vitamin B12, folate, vitamin-D levels. Patient reports that she is moving her bowels well now she is taking fiber and pre and probiotics. We will send her for upper GI with barium swallow. Message sent to Surgical schedules to bulk procedure for patient.. However patient will return to discuss the prep and results. Patient will start taking omeprazole daily. Avoid dietary triggers late night snacking. Staying upright for minimal 3 hours after meals discussed patient. Patient will follow-up in 2-3 months, sooner on as needed basis. She is agreeable to this plan and verbalizes understanding of instructions. She was given the opportunity to ask questions and all questions answered. Thank you for allowing me to participate in her care Orders: Orders Transglutaminase IgA Today R10.9 - Unspecified abdominal pain FL upper GI w air w Ba Swallow Today K21.9 - Gastro-esophageal reflux disease without esophagitis H Pylori Breath Test Today K21.9 - Gastro-esophageal reflux disease without esophagitis Transglutaminase Ab IgG Today R10.9 - Unspecified abdominal pain Vitamin B12 and Folate Today R19.7 - Diarrhea, unspecified Vitamin D 25-OH (D2 and D3) Today E55.9 - Vitamin D deficiency, unspecified Medications: New omeprazole 40 mg PO DAILY 90 caps 3RF K21.9 - Gastro-esophageal reflux disease without esophagitis Coding Level of Care Code New Pt Level 4 (13626) Diagnoses Screen for colon cancer Z12.11 Gastroesophageal reflux disease, unspecified whether esophagitis present K21.9 Esophagitis presence: esophagitis presence not specified History of Helicobacter pylori infection Z86.19 Time Spent (min) 45 Comment 35 minutes spent with patient and additional 10 minutes spent reviewing her records
[2025-03-15 09:09] VITALS: BP 116/74; PULSE 68; O2SAT 99; BMI 26.3
--- OUTSIDE RECORDS SUMMARY | 2025-03-15 09:34 | XMS_ITS | Encounter Summary ---
Author Organization [employer] Address [address] [facility] 7 [place] [address] Care Team Providers Care Drug Abuse Resistance Education Officer Name Role Phone Ivy Blanton MD Primary Care Provide r Reason for Visit * Reason Onset Date Comments ER Follow-up 05/25/2024 Encounter Details Date Type Department Care Team ([facility] Contact Info) Description 05/25/2024 Telephone [facility] [address] [place], [place] [phone] Ivy Blanton MD [address] [place] [address] ER Follow-up Social History Tobacco Use Types [...] AM EST Please obtain ED report from [facility] ED , Pt seen 05/19/24. Thank you Triage call with [employer] cardiology coordinator [place] [id number]. Pt reports being seen in ED , [facility] 05/19/24. 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 Pt would like to be seen soon. [...] ED visit on : Date: 05/19/24 Hospital: [facility] Seen for: Asthma Symptom: Cough Outcome: Talk to a nurse or provider within 15 minutes Reason: Any trouble breathing through the mouth Zambian Speaker (Accepted Image Consultant) documented in this encounter Plan of Treatment Upcoming Encounters Date Type Department Care Team (Late st Contact Info) Description 03/27/2025 9:15 AM EDT Office Visit [facility] [address] [place] [address] Ivy Blanton MD [address] [place] [address] documented as of this encounter Visit Diagnoses Not on filedocumented in this encounter Additional Health Concerns Assessment Noted Time PHQ-9 Depression Total Score: 0 11/22/19 24 10:14 AM EDT documented as of this encounter Care Teams Drug Abuse Resistance Education Officer Relationship Specialty Start Date End Date Ivy Blanton MD [address] [place] [address] PCP - General Internal Medicine 11/22/23 documented as of this encounter
--- OUTSIDE RECORDS SUMMARY | 2025-03-15 09:34 | XMS_ITS | Clinical Summary ---
Author Organization [facility] Address [address] [place] [address] Care Team Providers Care Aircraft Charter Dispatcher Name Role Phone Unavailable Primary Care Provider [...] mg tabletIndication s:Mild intermittent asthma without complication ([facility]) Take 1 Tab by mouth nightly [...] mcg/actuation inhalerIndicatio ns:Mild intermittent asthma without complication ([facility]) INHALE 2 PUFFS INTO THE LUNGS [...] nebulizer accessoriesIndic ations:Mild intermittent asthma without complication ([facility]) Use as directed 1 Device 9 [...] pylori s/p Rx. Had EGD ( ~2011 @[facility]). Constipation 05/13/2015 Mild intermittent asthma without complication ([facility]) 05/13/2015 Overview (05/13/2015): Symptoms depend on weather changes. Only on Albuterol. Had PFTs in [place] ~2013. Dizziness 05/13/2015 Overview (05/13/2015): Says that she was treated for vertigo in the past H/O abnormal cervical Papanicolaou smear 015 Overview (05/13/2015): ~2009 as per pt. S/p ? Colposcopy / Bx. Had normal PAP subsequently- last PAP 07/2014. Following with Software Test Analyst at [facility] Leukocytosis 05/13/2015 Overview (05/13/2015): Wbc=11.5(05/13/15) ? [...] of Treatment Not on file [facility]
--- OUTSIDE RECORDS SUMMARY | 2025-03-15 09:34 | XMS_ITS | Clinical Summary ---
Author Organization [employer] Address [address] [place] [address] Care Team Providers Care Oil House Attendant Name Role Phone Ivy Blanton MD Primary Care Provide r Allergies No known active allergies Medications * This document contains information received from the source organization and may not represent a complete record from that organization. FLUoxetine (PROzac) 20 MG capsule TOME 1 C PSULA POR V A ORAL TODOS LOS D EN LA MA MURALI 4 Active cholecalciferol VITAMIN D (Vitamin D-3) 50 MCG (2000 UT) capsule TOME 1 C PSULA POR V A ORAL TODOS LOS D Active albuterol 108 (90 Base) MCG/ACT inhalerIndicatio ns:Mild intermittent asthma, unspecified whether complicated Inhale 2 puffs every 6 (six) hours if needed for wheezing. 18 g 2 5 026 Active albuterol (2.5 MG/3ML) 0.083% nebulizer solutionIndicati ons:Mild intermittent asthma, unspecified whether complicated Take 3 mL (2.5 mg) by nebulization every 4 (four) hours if needed for wheezing. 75 mL 3 5 026 Active LORazepam (Ativan) 0.5 MG tabletIndication s:Anxiety Use if needed for traveling 4 tablet 5 Active naproxen (Naprosyn) 500 MG tablet Take 1 tablet (500 mg) by mouth if needed in the morning and at bedtime for mild pain. 40 tablet 1 5 026 Active Diclofenac Sodium 1 % gel Apply 2 g topically if needed in the morning, at noon, in the evening, and at bedtime (pain). 150 g 3 5 Active fluticasone furoate (Arnuity Ellipta) 100 MCG/ACT inhalerIndicatio ns:Mild intermittent asthma, unspecified whether complicated Inhale 1 puff Once per day. Rinse mouth with water after use to reduce aftertaste and incidence of candidiasis. Do not swallow. 1 each 11 5 026 Active cholecalciferol (Vitamin D-3) 25 MCG (1000 UT) tablet Take 1 tablet (25 mcg) by mouth Once per day. 60 tablet 3 5 Active Active Problems Problem Noted Date Diagnosed [...] Type Department Care Team Description 02/19/2025 Telephone [facility] [address] [place] [phone] Ivy Blanton MD cologuard outreach 02/13/2025 Telephone [facility] [address] [place] [address] Ivy Blanton MD Tspot Order 02/12/2025 2:00 PM EDT Office Visit [facility] [address] [place] [address] [place], [place], [facility] Healthcare maintenance (Primary Dx); Mild intermittent asthma, unspecified whether complicated; Encounter for immunization; Dietary counseling; Exercise counseling 02/12/2025 Travel 02/11/[address] [address] Ivy Blanton MD Chart Prep 02/11/[address] [address] Sindy Vo DO 02/04/2025 Patient Outreach [address] [address] Ivy Blanton MD Pre-visit Planning (SDOH screening completed on 09/26/2024) 01/08/2025 11:45 AM EDT Office Visit [address] [address] Sindy oV DO Pain of left breast (Primary Dx) 01/08/2025 Travel 01/07/[address] [address] Ivy Blanton MD Nurse Triage 12/25/[address] [address] Ivy Blanton MD SEP RECALL from Last [...] Description 03/27/2025 9:15 AM EDT Office Visit [facility] [address] [place] [address] Ivy Blanton MD [address] [place] [address] Health Maintenance Due Date Last Done Comments [...] Full Mouth 09/11/2022 020, 10/04/2014 COVID-19 Vaccine (2023-2 5 season) 2024 01/07/2021, 12/17/2020 Influenza Vaccine [...] Laterality Modality Breast Bilateral Mammography us Sindy Vo DO IMG BI PROCEDURES Final Resu lt * BI US Breast Complete Left (02/14/2025) Anatomical Region Laterality Modality Breast Left Ultrasound us Sindy Vo DO IMG US PROCEDURES Final Resu lt * T-SPOT??.TB (02/13/2025 9:08 AM EDT) T Spot TB Negative Negative [facility] Comment:A negative test resu lt does [...] as aquantitative test. TS PANEL A 1 [facility] TS PANEL B 2 [facility] Negative Control Passed [facility] Positive Control Passed [facility] Comment:For additional infor matviraj, please refer [email or web address]/faq/PEB725(This link is being provided for informational/educational purposes only.)REPORT COMMENT:REC'D IN CHYTHIS TEST WAS PERFORMED AT:[facility] [id number] [place] [id number] SIMMONS MD,PHD 02/13/2025 9:08 AM EDT 02/13/2025 11:18 AM EDT Ivy Willett MD LAB BLOOD ORDERABLES Final Result Performing Organization Address [facility] Co de Phone Number [facility] [address] [place] [phone] * Hepatitis C Antibody with Reflex to HCV, RNA, Quantitative, Real-Time PCR (10/19/2024 9:18 AM EDT) Hepatitis C Antibody Nonreactive Nonreactive [facility] Comment:Antibodies to HCV no t detected; does not exclude early acuteHCV infection. Blood Venous blood specimen / Unknown 10/19/2024 9:18 AM EDT 10/19/2024 11:18 AM EDT Ivy Willett MD LAB BLOOD ORDERABLES Final Result Performing Organization Address [facility] de Phone Number [facility] [address] [place] [phone] * HIV-1/2 Antigen and Antibodies, Fourth Generation, with Reflexes (10/19/2024 9:18 AM EDT) Pathologist [facility] HIV AB/AG Nonreactive Nonreactive [facility] Comment:HIV-1 p24 Ag and/or HIV-1/HIV-2 Ab not detected.A test result that is nonreactive does not exclude thepossibility of exposure to or infection with HIV-1 and/orHIV-2. Nonreactive results in this assay for individualswith prior exposure to HIV-1 and/or HIV-2 may be due toantigen and antibody levels that are below the limit ofdetection of this assay.The [employer] HIV Ag/Ab Combo assay result andsupplemental assay results should be interpreted inconjunction with the patient's clinical presentation,history and other laboratory results. If the results areinconsistent with clinical evidence, additional testing issuggested to confirm the result. Blood Venous blood specimen / Unknown 10/19/2024 9:18 AM EDT 10/19/2024 11:18 AM EDT Ivy Willett MD LAB BLOOD ORDERABLES Final Result [facility] [address] [place] [phone] * HM PAP/HPV (02/03/2021 2:29 PM EDT) us Historical Provider HEALTH MAINTENANCE Final Result from Last 3 Months or Most Recently Relevant to Health Maintenance [place] [address] [place] [address] Care Teams Oil House Attendant Relationship Specialty Start Date End Date Ivy Blanton MD [address] [place] [phone] PCP - General Internal Medicine 11/22/23
--- OUTSIDE RECORDS SUMMARY | 2025-03-15 09:34 | XMS_ITS | Clinical Summary ---
Author Organization [facility] it Address [address] [place] [address] Care Team Providers Care Online Publisher Name Role Phone Ivy Blanton MD Primary Care Provide r Surgical History Surgery Date Site/Laterality Comments TONSILLECTOMY PROCEDURE: HISTORICAL TONSILLECTOMY TUBAL LIGATION PROCEDURE: HISTORICAL TUBAL LIGATION UPPER GASTROINTESTINAL ENDOSCOPY 2012 PROCEDURE: NC UPPER GI ENDOSCOPY PERFORMED; COMMENT: [facility] COLONOSCOPY 02/01/2017 PROCEDURE: HISTORICAL COLONOSCOPY; COMMENT: Dr. Montes -apparently normal ESOPHAGOGASTRODUODENOSCOPY 02/01/2017 PROCEDURE: NC EGD TRANSORAL BIOPSY SINGLE/MULTIPLE; COMMENT: Dr. Montes -gastritis. Biopsy consistent with chronic active gastritis with H. pylori infection. OTHER SURGICAL HISTORY 08/22/2017 PROCEDURE: CONTRAST X-RAYS, GALLBLADDER; COMMENT: HIDA scan is normal OTHER SURGICAL HISTORY 2009 N/A PROCEDURE: CERVICAL LEEP CONE BIOPSY [facility] PATHOLOGY EX ESOPHAGOGASTRODUODENOSCOPY 11/04/2021 PROCEDURE: NC EGD TRANSORAL BIOPSY SINGLE/MULTIPLE; COMMENT: normal, biopsy pending Medical History Medical History Date Comments Anemia 06/29/2013 DX:Anemia Anxiety 06/29/2013 DX:Anxiety; [facility]; sees psych [...] RESULTING AGENCY - 04/24/2024 1:15 PM EDT [id number] THINPREP PAP, IMAGED: NEGATIVE FOR SQUAMOUS INTRAEPITHELIAL LESION AND MALIGNANCY ION PARIKH(ASCP) (CASE ELECTRONICALLY SIGNED 04 24 2024) RESULT OF APTIMA HIGH RISK HPV ASSAY: HIGH RISK HPV: NEGATIVE (SEROTYPES 16,18,31,33,35,39,45,51,52,56,58,59,66,68) COMPLETED ON 2024-04-20 ADEQUACY: SATISFACTORY ENDOCERVICAL/TRANSFORMATION ZONE COMPONENT PRESENT. SOURCE: THINPREP PAP HPV ANY DX: REFLEX 16 AND 18, CERVICAL, IMAGED CLINICAL INFORMATION: HPV ANY DIAGNOSIS. HORMONES, [place] NEGATIVE [place] [facility] [place], [Z01.419 ENCOUNTER FOR GYNECOLOGICAL EXAMINATION (GENERAL) (ROUTINE) WITHOUT ABNORMAL FINDINGS] us Phylicia Moore CNBalaji LAB CYTOLOGY ORDERABLES Final Result HISTORICAL TESTING LAB RESULTING AGENCY from Last 3 Months or Most Recently Relevant to Health Maintenance Care Teams Online Publisher Relationship Specialty Start Date End Date Ivy Blanton MD [address] [phone] PCP - General 01/13/24
--- OUTSIDE RECORDS SUMMARY | 2025-03-15 09:34 | XMS_ITS | Encounter Summary ---
Author Organization [employer] Address [address] [place] [address] Care Team Providers Care Project Control Analyst Name Role Phone Ivy Blanton MD Primary Care Provide r Encounter Details Date Type Department Care Team ([facility] st Contact Info) Description 05/03/2024 Orders Only [facility] [address] [place] [address] Provider, MD Inez Social History Tobacco Use [...] AM EDT Office Visit [facility] [address] [place] [phone] Ivy Blanton MD [address] [place] [phone] documented as of this encounter Procedures Procedure [...] documented as of this encounter Care Teams Project Control Analyst Relationship Specialty Start Date End Date Ivy Blanton MD [address] [place] [phone] PCP - General Internal Medicine 11/22/23 documented as of this encounter
== END 2025-03-15 10:02 | disposition home or self-care (01) ==
LOC: HO.HGI 08:39
PROVIDERS: PCP Internal Medicine; Visit Provider Nurse Practitioner Family
DX: K21.9 Gastro-esophageal reflux disease without esophagitis (principal); Z86.19 Personal history of other infectious and parasitic diseases
CPT/HCPCS: 99204

== ENCOUNTER 2025-03-15 08:38 | Outpatient (REF) | payer OTHER, SELFPAY ==
[2025-03-15 12:49] LABS: Folate 14.6 ng/mL (> or = 4.0); Vitamin B12 935 pg/mL (200-900)
[2025-03-19 16:54] LABS: Vitamin D 25-OH, D2 <4 ng/mL; Vitamin D 25-OH, D3 25 ng/mL; Vitamin D 25-OH, Total 25 ng/mL (30-100)
[2025-03-19 18:52] LABS: Transglutaminase Ab IgG <1.0 U/mL
== END 2025-03-15 08:39 | disposition home or self-care (01) ==
LOC: HO.LAB 08:38
PROVIDERS: PCP Internal Medicine; Visit Provider Nurse Practitioner Family
DX: Z12.11 Encounter for screening for malignant neoplasm of colon (principal); K21.9 Gastro-esophageal reflux disease without esophagitis; R19.7 Diarrhea, unspecified; R10.9 Unspecified abdominal pain; E55.9 Vitamin D deficiency, unspecified; Z86.19 Personal history of other infectious and parasitic diseases
CPT/HCPCS: 36415; 82306; 82607; 82746; 83013; 86364; 99202